=== PATIENT | male | born 1950 | race Caucasian/White ===

== ENCOUNTER 2017-01-08 08:38 | Inpatient (IN) | payer OTHER ==
--- NOTE | 2017-01-08 09:27 | EDPHY ---
H & P Smoking Status: Former smoker Time Seen by Provider: 01/08/17 09:02 HPI/ROS: CHIEF COMPLAINT: Weakness, confusion HISTORY OF PRESENT ILLNESS: 66-year-old male presents to the emergency department with his ex- by private vehicle feeling extremely weak over last 1 month. He has had a lack of appetite has not been eating well. Saw a primary care provider few weeks ago and had laboratory studies drawn. He was told that his sodium was low and he was told at salt to his diet. His daughter whom he lives with has become increasingly concerned that he is acting more confused. He has no pain in his chest. No difficulty breathing. No history of syncopal episodes. No abdominal pain. No melena. No headache. No reported trauma. The patient reports that he has lost over 25 lb in the last 1 month unintentionally. He thinks this is related to poor appetite. REVIEW OF SYSTEMS: Constitutional: No fever, no chills. Eyes: No double or blurry vision. ENT: No sore throat. Respiratory: No cough, no shortness of breath. Cardiac: No chest pain. Gastrointestinal: No abdominal pain, vomiting or diarrhea. Genitourinary: No dysuria. Musculoskeletal: No neck or back pain. Skin: No rashes. Neurological: No headache. (Emili Aldridge) Past Medical/Surgical History: Negative (Emili Aldridge) Social History: Divorce, lives with his daughter (Emili Aldridge) Physical Exam: General Appearance: Alert, no distress. Heart rate 108, initial blood pressure 90/54, 93% on room air. Eyes: Pupils equal and round. Extraocular motions are all intact. ENT: Mouth: Mucous membranes moist. Respiratory: No wheezing, rhonchi, or rales, lungs are clear to auscultation. Cardiovascular: Regular rate and rhythm. Gastrointestinal: Abdomen is soft and nontender, no masses, no rebound or guarding, bowel sounds normal. No CVA tenderness bilaterally. Rectal exam: Multiple nonthrombosed external hemorrhoids noted. No bleeding noted. Normal sphincter tone. Light brown-colored stool. Neurological: Alert and oriented x 3, cranial nerves II through XII grossly intact Skin: Warm and dry, no rashes. Musculoskeletal: Nontender to palpate along the cervical, thoracic or lumbar spine. Neck is supple. Extremities: Full range of motion and no peripheral edema. Psychiatric: Patient is oriented X 3, there is no agitation. (Emili Aldridge) Constitutional: Initial Vital Signs Temperature (C) 36.3 C 01/08/17 08:42 Heart Rate 108 H 01/08/17 08:42 Respiratory Rate 22 H 01/08/17 08:42 Blood Pressure 90/54 L 01/08/17 08:42 O2 Sat (%) 93 01/08/17 08:42 O2 Delivery Mode Room Air Allergies/Adverse Reactions: No Known Allergies Allergy (Unverified 01/08/17 08:41) Home Medications: Medication Instructions Recorded NK [No Known Home Meds] 01/08/17 Medical Decision Making - Diagnostics EKG Interpretation: EKG: Complete interpretation has been separately recorded in the [facility] archive. Summary impression: Sinus rhythm (Max Sena) Imaging: Imaging Impressions Head CT 01/08/17 09:51 Impression: No acute intracranial findings. If symptoms persist and clinical suspicion warrants, consider MRI. Findings discussed with Emili Aldridge PA-C, on 01/08/2017 at 1050 hours. ED Course/Re-evaluation: 66-year-old male presents to the emergency department by private vehicle feeling weak for the last 1 month. Upon reviewing the patient's medical record , the patient had a sodium of 122 on December 17, 2016. He was also anemic with hemoglobin of 12 and hematocrit of 35%. The patient had outpatient CT scan of his chest that was ordered by Toshia Almazan. These images were in Health images. Findings suggest abnormally enlarged mediastinal and left hilar lymphadenopathy. Possible lymphoma versus metastatic disease is considered. There are multiple low-density lesions noted in the spleen as well. He was also noted to have a small nonspecific right upper lobe pulmonary nodule. I informed the patient of the above findings. Laboratory studies including chemistries reveal sodium now of 120. Potassium is normal at 4. BUN of 10 and a creatinine of 0.5. Liver function tests reveal AST of 244, previously on December 17, 2016 this was 81 , ALT of 215, previously 80, conjugated bili 0.6. CT imaging of the brain both without with contrast has been ordered for his confusion. CT imaging of the brain without with contrast was reportedly normal. No intracranial bleeding or suspicious lesions. Patient will be admitted to the hospitalist. The patient has given permission to speak with his ex-, Evon at phone number [phone]. He has also given permission to talk with his daughter whom he lives with, [facility], . The patient was also seen examined by Dr. Sena, secondary supervising physician who spoke with the hospitalist for admission. (Emili Aldridge) Differential Diagnosis: Weakness including but not limited to electrolyte abnormality, depression, anxiety, CVA, spinal cord abnormality, and infectious causes. (Emili Aldridge) Other Provider: PHYSICIAN DOCUMENTATION: The patient was evaluated and managed by the Physician Double End Chucking Machine Operator. My co- signature indicates that I have reviewed this chart and I agree with the findings and plan of care as documented. I am the secondary supervising physician. (Max Sena) - Data Points Laboratory Results: Laboratory Results 01/08/17 09:05 01/08/17 09:05 01/08/17 01/08/17 01/08/17 09:05 09:05 09:05 WBC 5.00 10^3/uL 10^3/uL (3.80-9.50) RBC 4.19 10^6/uL L 10^6/uL (4.40-6.38) Hgb 11.1 g/dL L g/dL (13.7-17.5) Hct 32.4 % L % (40.0-51.0) MCV 77.3 fL L fL (81.5-99.8) MCH 26.5 pg L pg (27.9-34.1) MCHC 34.3 g/dL g/dL (32.4-36.7) RDW 16.7 % H % (11.5-15.2) Plt Count 307 10^3/uL 10^3/uL (150-400) MPV 7.6 fL L fL (8.7-11.7) Neut % (Auto) Not Reported Lymph % (Auto) Not Reported Carver % (Auto) Not Reported Eos % (Auto) Not Reported Baso % (Auto) Not Reported Nucleat RBC Rel Count 0.0 % % (0.0-0.2) Absolute Neuts (auto) Not Reported Absolute Lymphs (auto) Not Reported Absolute Monos (auto) Not Reported Absolute Eos (auto) Not Reported Absolute Basos (auto) Not Reported Absolute Nucleated RBC 0.00 10^3/uL 10^3/uL (0-0.01) Immature Gran % Not Reported Seg Neutrophils % 78 % % Band Neutrophils % 2 % % Lymphocytes % 8 % % Monocytes % 11 % % Eosinophils % 1 % % Immature Gran # Not Reported Absolute Seg Neuts 3.90 10^/uL 10^/uL (1.70-6.50) Absolute Band Neuts 0.10 10^3/uL 10^3/uL (0.00-0.70) Absolute Lymphocytes 0.40 10^3/uL L 10^3/uL (1.00-3.00) Absolute Monocytes 0.55 10^3/uL 10^3/uL (0.30-0.80) Absolute Eosinophils 0.05 10^3/uL 10^3/uL (0.03-0.40) Platelet Estimate ADEQUATE (ADEQ) Giant Platelets PRESENT H Microcytic Cells 1+ H Sodium 120 mEq/L L mEq/L (134-144) Potassium 4.0 mEq/L mEq/L (3.5-5.2) Chloride 85 mEq/L L mEq/L (97-110) Carbon Dioxide 26 mEq/l mEq/l (22-31) Anion Gap 9 mEq/L mEq/L (8-16) BUN 10 mg/dL mg/dL (7-23) Creatinine 0.5 mg/dL L mg/dL (0.7-1.3) Estimated GFR > 60 Glucose 104 mg/dL H mg/dL (70-100) Calcium 8.4 mg/dL L mg/dL (8.5-10.4) Total Bilirubin 1.0 mg/dL mg/dL (0.1-1.4) Conjugated Bilirubin 0.6 mg/dL H mg/dL (0.0-0.5) Unconjugated Bilirubin 0.4 mg/dL mg/dL (0.0-1.1) AST 244 IU/L H IU/L (17-59) ALT 215 IU/L H IU/L (21-72) Alkaline Phosphatase 1097 IU/L H IU/L (38-126) Total Protein 6.1 g/dL L g/dL (6.3-8.2) Albumin 2.8 g/dL L g/dL (3.5-5.0) Stool Occult Bld Scrn NEGATIVE (NEGATIVE) Departure - Departure Disposition: [facility] Inpatient Acute Clinical Impression: Chronic hyponatremia, Mediastinal adenopathy, Dehydration Failure to thrive Qualifiers: Failure to thrive age range: in adult Qualified Code(s): R62.7 - Adult failure to thrive Condition: Fair
[2017-01-08 09:31] LABS: ADD DIFF? YES; ADD MORPH? NO; ADD SCAN? NO; ATYPICAL LYMPHOCYTE FLAG 0 (0-99); FRAGMENT RBC FLAG 0 (0-99); HEMATOCRIT 32.4 % (40.0-51.0); HEMOGLOBIN 11.1 g/dL (13.7-17.5); LEFT SHIFT FLG 40 (0-99); LIPEMIA HEMOLYSIS FLAG 90 (0-99); MEAN CELL HEMOGLOBIN 26.5 pg (27.9-34.1); MEAN CELL HEMOGLOBIN CONCENTR. 34.3 g/dL (32.4-36.7); MEAN CELL VOLUME 77.3 fL (81.5-99.8); MEAN PLATELET VOLUME 7.6 fL (8.7-11.7); PLATELET CLUMPS FLAG 0 (0-99); PLATELET COUNT 307 10^3/uL (150-400); RED BLOOD CELL COUNT 4.19 10^6/uL (4.40-6.38); RED CELL DISTRIBUTION WIDTH 16.7 % (11.5-15.2)
--- NOTE | 2017-01-08 09:32 | CPEKG ---
Heart Rate: 84 RR Interval: 714 P-R Interval: 168 QRSD Interval: 82 QT Interval: 348 QTC Interval: 412 P [place]: 70 QRS [place]: -19 T Wave [place]: 73 EKG Severity - BORDERLINE ECG - EKG Impression: SINUS RHYTHM Electronically Signed By: Max Sena 08-Jan-2017 11:53:01
[2017-01-08 09:41] LABS: ALANINE AMINOTRANSFERASE 215 IU/L (21-72); ALBUMIN 2.8 g/dL (3.5-5.0); ALKALINE PHOSPHATASE 1097 IU/L (38-126); ANION GAP 9 mEq/L (8-16); ASPARTATE AMINOTRANSFERASE 244 IU/L (17-59); BILIRUBIN-CONJUGATED 0.6 mg/dL (0.0-0.5); BILIRUBIN-UNCONJUGATED 0.4 mg/dL (0.0-1.1); CALCIUM 8.4 mg/dL (8.5-10.4); CARBON DIOXIDE 26 mEq/l (22-31); CHLORIDE 85 mEq/L (97-110); CREATININE 0.5 mg/dL (0.7-1.3); GLOMERULAR FILTRATION RATE > 60; GLUCOSE 104 mg/dL (70-100); SODIUM 120 mEq/L (134-144); TOTAL PROTEIN 6.1 g/dL (6.3-8.2)
[2017-01-08] MEDS ORDERED: IOPAMIDOL (ISOVUE-300) 100 ML BTL IV ONE (09:59)
[2017-01-08 10:05] LABS: GIANT PLATELETS PRESENT; MICROCYTES 1+; PLATELET ESTIMATE ADEQUATE (ADEQ)
[2017-01-08] MEDS ORDERED: ONDANSETRON DISINTEGRATING 4 MG TAB PO PRN (15:21)
[2017-01-08] MEDS ORDERED: NS 1,000 ML IV SCH (15:30)
--- NOTE | 2017-01-08 15:45 | GHP ---
[f rep st] HISTORY AND PHYSICAL DATE OF ADMISSION: 01/08/2017 CHIEF COMPLAINT: Weakness. HISTORY OF PRESENT ILLNESS: This is a 66-year-old male with no significant past medical history. Chandu king says that about 5 weeks ago he started developing weakness and poor appetite. This has progressed into some confusion, although he does answer questions pretty appropriately. He has lost 25 pounds . Other than that, he does not really have any focalizing symptoms. He denies any lymphadenopathy. He has no history of night sweats. No melena. No bowel changes. No urinary symptoms. No cough, shortness of breath, chest pain, or abdominal pain. Labs done about a month ago show hyponatremia and elevated liver function tests. Supposedly he did have a CAT scan of his chest which showed lymp hadenopathy, but I do not know where that was or what was done about it. REVIEW OF SYSTEMS: A 10-point review of systems was obtained and negative. PAST MEDICAL HISTORY: None. MEDICATIONS: None. SOCIAL HISTORY: Was a smoker but quit 9 months ago. No alcohol. 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 FAMILY HISTORY: Mother had a very aggressive cancer and father also had cancer. PHYSICAL EXAMINATION: VITAL SIGNS: Afebrile. Blood pressure is 119/67, heart rate 75, oxygen satu ration 96% on room air. GENERAL: Patient is cachectic but in no apparent distress HEENT: Nonicte alfredo sclerae. Extraocular movements intact. Moist mucous membranes. NECK: Supple. No thyromegaly . LUNGS: Good effort. Clear to auscultation bilaterally. CARDIOVASCULAR: Regular rate and rhyth m. A 2/6 systolic murmur. ABDOMEN: Soft, nontender, nondistended. LYMPHATICS: No cervical, axil kori, or femoral lymphadenopathy. NEUROLOGIC: Alert and oriented x3. Moving all 4 extremities equ ally. PSYCH: Normal affect. LABORATORY DATA: Sodium 120, creatinine is 0.5. AST and ALT in the 200s, alk phos of 1000. Has mi ld microcytic anemia. Guaiac negative. CT scan of the head does not show any abnormalities. ASSESSMENT/PLAN: 1. This is a 66-year-old male presenting with severe hyponatremia, cachexia, elevated liver functio n tests, and probable malignancy. PLAN: We will repeat CAT scanning today including chest, abdomen , and pelvis. We will check a PSA and a CEA. Further evaluation after the results of the this init ial testing. 2. Hyponatremia, probably element of syndrome of inappropriate anti-diuretic hormone. I think ther e is also an element of volume depletion, and so will give a little bit of IV fluids at 50 cc an jennifer r and monitor sodiums to make sure they are not correcting to quickly. Will also check a urine sodi um. 3. Microcytic anemia. Will check iron studies. 4. Elevated liver function tests, probably related to metastatic malignancy. CT scan of the abdome n and pelvis will be done. 5. Code status: Patient is full code. /[id number]/MODL
[2017-01-08 17:17] LABS: % SATURATION 16 % (20-55); TOTAL IRON BINDING CAPACITY 206 ug/dL (260-490)
[2017-01-08 19:26] LABS: COLOR YELLOW; LEUKOCYTE ESTERASE,URINE NEGATIVE (NEGATIVE); NITRITE,URINE NEGATIVE (NEGATIVE)
[2017-01-09 04:57] LABS: ADD DIFF? YES; ADD MORPH? NO; ADD SCAN? NO; ATYPICAL LYMPHOCYTE FLAG 90 (0-99); FRAGMENT RBC FLAG 0 (0-99); HEMATOCRIT 29.1 % (40.0-51.0); HEMOGLOBIN 10.1 g/dL (13.7-17.5); LEFT SHIFT FLG 30 (0-99); LIPEMIA HEMOLYSIS FLAG 90 (0-99); MEAN CELL HEMOGLOBIN 26.9 pg (27.9-34.1); MEAN CELL HEMOGLOBIN CONCENTR. 34.7 g/dL (32.4-36.7); MEAN CELL VOLUME 77.6 fL (81.5-99.8); MEAN PLATELET VOLUME 7.6 fL (8.7-11.7); PLATELET CLUMPS FLAG 0 (0-99); PLATELET COUNT 273 10^3/uL (150-400); RED BLOOD CELL COUNT 3.75 10^6/uL (4.40-6.38); RED CELL DISTRIBUTION WIDTH 16.4 % (11.5-15.2)
[2017-01-09 05:06] LABS: INR 1.16 (0.83-1.16); PROTIME(PATIENT) 14.8 SEC (12.0-15.0)
[2017-01-09 05:17] LABS: ANION GAP 9 mEq/L (8-16); CALCIUM 7.8 mg/dL (8.5-10.4); CARBON DIOXIDE 23 mEq/l (22-31); CHLORIDE 86 mEq/L (97-110); CREATININE 0.5 mg/dL (0.7-1.3); GLOMERULAR FILTRATION RATE > 60; GLUCOSE 92 mg/dL (70-100); POTASSIUM 4.2 mEq/L (3.5-5.2)
[2017-01-09 05:20] LABS: SODIUM 118 mEq/L (134-144)
[2017-01-09 05:41] LABS: PLATELET ESTIMATE ADEQUATE (ADEQ)
[2017-01-09] MEDS ORDERED: ENOXAPARIN 30 MG/0.3 ML SYR SC SCH (09:00)
[2017-01-09] MEDS: ENOXAPARIN 40 MG/0.4 ML SYR SC SCH (11:36)
--- NOTE | 2017-01-09 13:03 | HOSPPROG ---
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- suspect the 120 is close to his recent baseline oxygen saturations 90% on RA - stop IVF - encourage PO - will monitor sodium this pm with fluid restriction # Severe protein calorie malnutrition - suspect from a potential underlying malignancy CT chest/abd (personally reviewed and interpretation) bulky bilateral LAD with no obvious primary tumor - dietary consultation - nourishments # Bulky LAD - oncology to see today and assist with diagnostic approach CEA wnl - PSA pending # Microcytic anemia - suspect related to above - ferritin >5000 - no transfusion indicated # elevated LFT - CT imaging without cirrhosis or obvious liver abnormality - may be related to underlying process - pt with relatively recent tattoo - send hep serologies # proph - lovenox # diet - regular # dispo - > 2MN as requires additional diagnostic evaluation and close monitoring of sodium I have discussed the case with Oncology - highly suspicious for SIADH - will dc IVF and follow Subjective: feels better today - took a good meal overnight Objective: Vital Signs Temp Pulse Resp BP Pulse Ox 36.3 C 89 16 128/73 H 92 01/09/17 08:20 01/09/17 08:20 01/09/17 08:20 01/09/17 08:20 01/09/17 08:20 Laboratory Results 01/09/17 04:31 01/09/17 04:31 01/08/17 01/09/17 01/10/17 05:59 05:59 05:59 Intake Total 1240 Output Total 1150 320 Balance 90 -320 PT 14.8 SEC (12.0-15.0) 01/09/17 04:31 INR 1.16 (0.83-1.16) 01/09/17 04:31 - Physical Exam Constitutional: chronically ill appearing, cachectic Eyes: anicteric sclera Ears, Nose, Mouth, Throat: dry mucous membranes Cardiovascular: regular rate and rhythym Respiratory: no respiratory distress, no rales or rhonchi Gastrointestinal: normoactive bowel sounds, soft, non-tender abdomen Genitourinary: no bladder fullness Skin: warm, normal color Musculoskeletal: No asymmetric calves Neurologic: AAOx3 Psychiatric: interacting appropriately, not anxious Lymph, Heme, Immunologic: lymphadenopathy ICD10 Worksheet Patient Problems: Problems Problem Status Onset Chronic hyponatremia Acute Dehydration Acute Failure to thrive Acute Mediastinal adenopathy Acute
[2017-01-09 17:25] LABS: ANION GAP 9 mEq/L (8-16); CARBON DIOXIDE 23 mEq/l (22-31); CHLORIDE 85 mEq/L (97-110); CREATININE 0.6 mg/dL (0.7-1.3); GLOMERULAR FILTRATION RATE > 60; GLUCOSE 107 mg/dL (70-100); POTASSIUM 4.1 mEq/L (3.5-5.2)
[2017-01-09 17:36] LABS: SODIUM 117 mEq/L (134-144)
[2017-01-10 05:04] LABS: HEMATOCRIT 29.9 % (40.0-51.0); HEMOGLOBIN 10.3 g/dL (13.7-17.5); MEAN CELL HEMOGLOBIN 26.8 pg (27.9-34.1); MEAN CELL HEMOGLOBIN CONCENTR. 34.4 g/dL (32.4-36.7); MEAN CELL VOLUME 77.7 fL (81.5-99.8); RED BLOOD CELL COUNT 3.85 10^6/uL (4.40-6.38); RED CELL DISTRIBUTION WIDTH 16.5 % (11.5-15.2)
[2017-01-10 05:22] LABS: ANION GAP 7 mEq/L (8-16); CARBON DIOXIDE 24 mEq/l (22-31); CHLORIDE 87 mEq/L (97-110); CREATININE 0.5 mg/dL (0.7-1.3); GLOMERULAR FILTRATION RATE > 60; GLUCOSE 97 mg/dL (70-100); POTASSIUM 4.2 mEq/L (3.5-5.2)
[2017-01-10 05:25] LABS: SODIUM 118 mEq/L (134-144)
[2017-01-10] MEDS: ENOXAPARIN 40 MG/0.4 ML SYR SC SCH (08:44)
--- NOTE | 2017-01-10 11:02 | HOSPPROG ---
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- suspect the 120 is close to his recent baseline oxygen saturations 90% on RA - stop IVF - encourage PO- to increase solutes - continue fluid restriction - will monitor sodium daily # Severe protein calorie malnutrition - suspect from a potential underlying malignancy CT chest/abd - bulky bilateral LAD with no obvious primary tumor - dietary consultation - nourishments # Acute encephalopathy at admit CT head (personally reviewed and interpreted) without acute findings symptoms resolved since admit - cont to monitor # Bulky LAD - oncology to see today and assist with diagnostic approach CEA wnl - PSA pending # Microcytic anemia - suspect related to above - ferritin >5000 - no transfusion indicated # Elevated LFT - CT imaging without cirrhosis or obvious liver abnormality - may be related to underlying process - pt with relatively recent tattoo - send hep serologies # proph - lovenox # diet - regular # dispo - > 2MN as requires additional diagnostic evaluation and close monitoring of sodium I have discussed the case with Oncology - highly suspicious for SIADH - makes small cell CA possibility Subjective: slept well - appetite improved Objective: Vital Signs Temp Pulse Resp BP Pulse Ox 36.9 C 84 16 118/67 93 01/10/17 08:40 01/10/17 08:40 01/10/17 08:40 01/10/17 08:40 01/10/17 08:40 Laboratory Results 01/10/17 04:44 01/10/17 04:44 01/09/17 01/10/17 01/11/17 05:59 05:59 05:59 Intake Total 1240 1200 Output Total 1150 2480 Balance 90 -1280 PT 14.8 SEC (12.0-15.0) 01/09/17 04:31 INR 1.16 (0.83-1.16) 01/09/17 04:31 - Physical Exam Constitutional: cachectic Eyes: anicteric sclera Ears, Nose, Mouth, Throat: moist mucous membranes Cardiovascular: regular rate and rhythym Respiratory: no respiratory distress, no rales or rhonchi Gastrointestinal: normoactive bowel sounds, soft, non-tender abdomen Genitourinary: no bladder fullness Skin: warm Musculoskeletal: No asymmetric calves Neurologic: AAOx3 Psychiatric: interacting appropriately, not anxious Lymph, Heme, Immunologic: lymphadenopathy ICD10 Worksheet Patient Problems: Problems Problem Status Onset Chronic hyponatremia Acute Dehydration Acute Failure to thrive Acute Mediastinal adenopathy Acute
--- NOTE | 2017-01-10 13:13 | GCON ---
[f rep st] CONSULTATION MEDICAL ONCOLOGY CONSULTATION REASON FOR CONSULTATION: A 66-year-old male with tobacco history, hyponatremia with sodium of 118, and mediastinal adenopathy including a left hilar mass with lymphadenopathy suggestive of a primary lung malignancy. HISTORY OF PRESENT ILLNESS: The patient is a 66-year-old white male who has an approximately 40 pac k-year history of tobacco use. He quit tobacco use 9 months ago. He reports approximately 5-6 week s of anorexia and 25-pound weight loss. He reports no nausea, vomiting, interruption in bowel funct ion, headache, or significant respiratory symptoms, night sweats, fevers, peripheral lymphadenopathy or pain at any location. 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 Family history notable for other members with a history of malignancy. He was admitted via the emergency department. CT scanning in the ER does show significant mediastinal lymphadenopathy and left hilar mass and left hilar lymphadenopathy suggestive of a primary malignancy. He has no significant findings below the diaphragm. ALLERGIES: None known. MEDICATIONS: None. PRIOR SURGICAL HISTORY: ORIF for right leg tibia/fibula fracture in 1991. PRIOR MEDICAL HISTORY: No acute or chronic medical condition. REVIEW OF SYSTEMS: Notable as above. SOCIAL HISTORY: The patient lives with his daughter. He is . His ex- is present durin g his interview today. No alcohol intake. Tobacco history as above. No known occupational exposur es. PHYSICAL EXAMINATION: GENERAL: This is a thin, middle-aged white male with a bulky diaz, who look s older than his chronologic age. He is alert, cooperative, and in no acute distress. HEENT: Exam shows no facial asymmetry. Sclerae anicteric. Oral mucosa intact. LYMPH NODES: No adenopathy in the neck. No axillary adenopathy. PULMONARY: Lung sullivan show slightly prolonged expiratory phas e. Otherwise, lung sullivan clear. CARDIAC: RSR. ABDOMEN: Soft, thin, flat, without mass, tendern ess or HSM. EXTREMITIES: No peripheral edema. NEUROLOGIC: Reflexes are intact. SKIN: Unremarka ble. LABORATORY DATA: Sodium 118, potassium 4.2, chloride 87, CO2 of 24, glucose 97, BUN 8, creatinine 0 .5. Pro time 14.8. Calcium 7.8, alkaline phosphatase above 1000, AST 244, ALT 215. CT scan of [address], abdomen, and pelvis is summarized above. IMPRESSION: Mediastinal adenopathy, including left hilar mass, left hilar lymphadenopathy in the se tting of hyponatremia in a euvolemic state with 25-pound weight loss and 40 pack-year history of tob acco use. COMMENTS: This situation is highly suggestive of a small cell carcinoma lung primary, given his cli nical presentation and history. Of course, other possibilities exist, including the possibility of a lymphoid malignancy. I have reviewed the situation today with the patient and his ex-, Evon. I do recommend CT-guided mediastinal lymph node biopsy as is feasible depending upon anatomic considerations. He should be provided optimal hospital management for his SIADH to include limit fluid restriction to 1200 mL or less per day. Include salt in his dietary intake, and careful monitoring of serial sodium assays un til correction or until a safe pattern in hyponatremia emerges. If not yet done, I suggest an MRI o f the brain. Our service will follow pending his workup. In our medical group, Dr. Olga Lidia Rain is scheduled for inpatient followup as of tomorrow, Wednesday, A pril 2016. I will inform Dr. Rain to continue serial followup of this gentleman in the [facility]. Thank you for allowing our service to see this patient and participate in his evaluation and managem ent. /[id number]/MODL
[2017-01-10 15:36] LABS: ANION GAP 7 mEq/L (8-16); CALCIUM 7.9 mg/dL (8.5-10.4); CARBON DIOXIDE 26 mEq/l (22-31); CHLORIDE 85 mEq/L (97-110); CREATININE 0.6 mg/dL (0.7-1.3); GLOMERULAR FILTRATION RATE > 60; GLUCOSE 152 mg/dL (70-100); POTASSIUM 4.2 mEq/L (3.5-5.2)
[2017-01-10 15:39] LABS: SODIUM 118 mEq/L (134-144)
[2017-01-11 06:14] LABS: ANION GAP 6 mEq/L (8-16); CALCIUM 8.2 mg/dL (8.5-10.4); CARBON DIOXIDE 24 mEq/l (22-31); CHLORIDE 89 mEq/L (97-110); CREATININE 0.5 mg/dL (0.7-1.3); GLOMERULAR FILTRATION RATE > 60; GLUCOSE 102 mg/dL (70-100); POTASSIUM 4.3 mEq/L (3.5-5.2)
[2017-01-11 06:16] LABS: SODIUM 119 mEq/L (134-144)
[2017-01-11 08:20] LABS: FREE PSA <0.1 ng/mL; PSA RATIO F/T See Comments ratio; TOTAL PSA 0.47 ng/mL (<=4.5)
[2017-01-11] MEDS: ENOXAPARIN 40 MG/0.4 ML SYR SC SCH (09:06)
[2017-01-11] MEDS ORDERED: GADOBUTROL 10 ML VIAL IVP ONE (11:53)
[2017-01-11] MEDS: SODIUM CHLORIDE 1,000 MG TAB PO SCH ×2 (13:25→18:28)
--- NOTE | 2017-01-11 14:45 | SOAPPROG ---
SOAP Progress Note Assessment/Plan: E&M mediastinal mass * Mediastinal and other lymphadenopathy: with SIADH, I am concern about malignancy. Reviewed CT with radiology and right low neck mass looks promising to get tissue. * SIADH: stable on fluid restrictions * Severe protein calorie malnutrition - suspect from a potential underlying malignancy Subjective: Doing about the same without new complaints. Objective: Vital Signs Temp Pulse Resp BP Pulse Ox 37.1 C 86 16 114/71 90 L 01/11/17 08:04 01/11/17 08:04 01/11/17 08:04 01/11/17 08:04 01/11/17 08:04 Laboratory Results 01/10/17 04:44 01/11/17 04:46 01/10/17 01/11/17 01/12/17 05:59 05:59 05:59 Intake Total 1200 300 Output Total 2480 430 75 Balance -1280 -130 -75 PT 14.8 SEC (12.0-15.0) 01/09/17 04:31 INR 1.16 (0.83-1.16) 01/09/17 04:31 Physical Exam - Physical Exam General Appearance: no apparent distress Respiratory: lungs clear Cardiac/Chest: regular rate, rhythm Abdomen: non-tender, soft Lymphatic: no adenopathy ICD10 Worksheet Patient Problems: Problems Problem Status Onset Chronic hyponatremia Acute Dehydration Acute Failure to thrive Acute Mediastinal adenopathy Acute
--- NOTE | 2017-01-11 16:00 | HOSPPROG ---
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 SIADH- suspect the 120 is close to his recent baseline oxygen saturations 94% on RA - no IVF - encourage PO - continue fluid restriction - adding salt tabs as solute intake has been marginal - will monitor sodium daily # Severe protein calorie malnutrition - suspect from a potential underlying malignancy CT chest/abd - bulky bilateral LAD with no obvious primary tumor - dietary consultation - nourishments # Acute encephalopathy at admit CT head - without acute findings symptoms resolved since admit - cont to monitor # Bulky LAD - oncology suspecting small cell CA - MRI brain (personally reviewed and interpreted) no mets CEA and PSA wnl - planning US guided LAD biopsy # Microcytic anemia - suspect related to above - ferritin >5000 - no transfusion indicated # Elevated LFT - CT imaging without cirrhosis or obvious liver abnormality - may be related to underlying process - pt with relatively recent tattoo hep serologies negative # proph - lovenox # diet - regular # dispo - > 2MN as requires additional diagnostic evaluation and close monitoring of sodium I have discussed the case with Oncology - plan for US guided biopsy of cervical LAD for tissue Subjective: enjoying walking Objective: Vital Signs Temp Pulse Resp BP Pulse Ox 37.1 C 86 16 114/71 94 01/11/17 08:04 01/11/17 08:04 01/11/17 08:04 01/11/17 08:04 01/11/17 09:45 Laboratory Results 01/10/17 04:44 01/11/17 04:46 01/10/17 01/11/17 01/12/17 05:59 05:59 05:59 Intake Total 1200 300 Output Total 2480 430 75 Balance -1280 -130 -75 PT 14.8 SEC (12.0-15.0) 01/09/17 04:31 INR 1.16 (0.83-1.16) 01/09/17 04:31 - Physical Exam Constitutional: chronically ill appearing, cachectic Eyes: anicteric sclera Ears, Nose, Mouth, Throat: dry mucous membranes Cardiovascular: regular rate and rhythym Respiratory: no respiratory distress, no rales or rhonchi Gastrointestinal: normoactive bowel sounds, soft, non-tender abdomen Genitourinary: no bladder fullness Skin: warm, normal color Musculoskeletal: No asymmetric calves Neurologic: AAOx3 Psychiatric: interacting appropriately, not anxious Lymph, Heme, Immunologic: no cervical LAD ICD10 Worksheet Patient Problems: Problems Problem Status Onset Chronic hyponatremia Acute Dehydration Acute Failure to thrive Acute Mediastinal adenopathy Acute
[2017-01-12 05:17] LABS: ANION GAP 9 mEq/L (8-16); CALCIUM 8.1 mg/dL (8.5-10.4); CARBON DIOXIDE 23 mEq/l (22-31); CHLORIDE 88 mEq/L (97-110); CREATININE 0.5 mg/dL (0.7-1.3); GLOMERULAR FILTRATION RATE > 60; GLUCOSE 103 mg/dL (70-100); POTASSIUM 4.4 mEq/L (3.5-5.2); SODIUM 120 mEq/L (134-144)
[2017-01-12] MEDS: SODIUM CHLORIDE 1,000 MG TAB PO SCH ×3 (08:48→17:54)
[2017-01-12] MEDS ORDERED: fentaNYL 100 MCG/2 ML INJ ONE (10:05)
[2017-01-12] MEDS ORDERED: MIDAZOLAM 2 MG/2 ML VIAL ONE (10:05)
[2017-01-12] MEDS ORDERED: NS 1,000 ML IV SCH (10:30)
--- NOTE | 2017-01-12 16:00 | HOSPPROG ---
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- suspect the 120 is close to his recent baseline oxygen saturations 90% on RA - no IVF - encourage PO - continue fluid restriction - cont salt tabs - as solute intake has been marginal - will monitor sodium daily # Severe protein calorie malnutrition - suspect from a potential underlying malignancy CT chest/abd - bulky bilateral LAD with no obvious primary tumor - dietary consultation - nourishments # Acute encephalopathy at admit CT head - without acute findings symptoms resolved since admit - cont to monitor # Microcytic anemia - suspect related to above - ferritin >5000 - no transfusion indicated # Elevated LFT - CT imaging without cirrhosis or obvious liver abnormality - may be related to underlying process - pt with relatively recent tattoo hep serologies negative # proph - lovenox # diet - regular # dispo - > 2MN as requires additional diagnostic evaluation and close monitoring of sodium I have discussed the case with Oncology - plan for CT guided biopsy today by IR then can develop plan from path Subjective: no pain post biopsy Objective: Vital Signs Temp Pulse Resp BP Pulse Ox 36.4 C 79 16 117/66 90 L 01/12/17 13:19 01/12/17 13:19 01/12/17 13:19 01/12/17 13:19 01/12/17 13:19 Laboratory Results 01/10/17 04:44 01/12/17 04:38 01/11/17 01/12/17 01/13/17 05:59 05:59 05:59 Intake Total 300 900 Output Total 430 450 125 Balance -130 450 -125 PT 14.8 SEC (12.0-15.0) 01/09/17 04:31 INR 1.16 (0.83-1.16) 01/09/17 04:31 - Physical Exam Constitutional: chronically ill appearing, cachectic Eyes: anicteric sclera Ears, Nose, Mouth, Throat: dry mucous membranes Cardiovascular: regular rate and rhythym Respiratory: no respiratory distress, no rales or rhonchi Gastrointestinal: normoactive bowel sounds, soft, non-tender abdomen Genitourinary: no bladder fullness Skin: warm, normal color Musculoskeletal: No asymmetric calves Neurologic: AAOx3 Psychiatric: interacting appropriately Lymph, Heme, Immunologic: no cervical LAD ICD10 Worksheet Patient Problems: Problems Problem Status Onset Chronic hyponatremia Acute Dehydration Acute Failure to thrive Acute Mediastinal adenopathy Acute
[2017-01-13 06:00] LABS: ANION GAP 7 mEq/L (8-16); CALCIUM 8.1 mg/dL (8.5-10.4); CARBON DIOXIDE 26 mEq/l (22-31); CHLORIDE 90 mEq/L (97-110); CREATININE 0.5 mg/dL (0.7-1.3); GLOMERULAR FILTRATION RATE > 60; GLUCOSE 104 mg/dL (70-100); POTASSIUM 4.5 mEq/L (3.5-5.2); SODIUM 123 mEq/L (134-144)
[2017-01-13] MEDS: SODIUM CHLORIDE 1,000 MG TAB PO SCH ×3 (08:55→17:34)
[2017-01-13] MEDS: ENOXAPARIN 40 MG/0.4 ML SYR SC SCH (10:08)
--- NOTE | 2017-01-13 10:31 | HOSPPROG ---
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- suspect the 120 is close to his recent baseline - no IVF - encourage PO - continue fluid restriction - cont salt tabs - as solute intake has been marginal - will monitor sodium daily # Severe protein calorie malnutrition - suspect from a potential underlying malignancy CT chest/abd - bulky bilateral LAD with no obvious primary tumor - dietary consultation - nourishments # Acute encephalopathy at admit CT head - without acute findings symptoms resolved since admit - cont to monitor # Microcytic anemia - suspect related to above - ferritin >5000 - no transfusion indicated # Elevated LFT - CT imaging without cirrhosis or obvious liver abnormality - may be related to underlying process - pt with relatively recent tattoo hep serologies negative # proph - lovenox # diet - regular # dispo - > 2MN as requires additional diagnostic evaluation and close monitoring of sodium I have discussed the case with Pharm D - will keep current salt tab dosing as PO remains modest at best Subjective: denies CP or SOB Objective: Vital Signs Temp Pulse Resp BP Pulse Ox 36.7 C 81 16 112/68 94 01/13/17 08:08 01/13/17 08:08 01/13/17 08:08 01/13/17 08:08 01/13/17 08:08 Laboratory Results 01/10/17 04:44 01/13/17 05:19 01/12/17 01/13/17 01/14/17 05:59 05:59 05:59 Intake Total 900 1160 450 Output Total 450 1525 125 Balance 450 -365 325 PT 14.8 SEC (12.0-15.0) 01/09/17 04:31 INR 1.16 (0.83-1.16) 01/09/17 04:31 - Physical Exam Constitutional: chronically ill appearing, cachectic Eyes: anicteric sclera Ears, Nose, Mouth, Throat: dry mucous membranes Cardiovascular: regular rate and rhythym Respiratory: no respiratory distress, no rales or rhonchi Gastrointestinal: normoactive bowel sounds, soft, non-tender abdomen Genitourinary: no bladder fullness Skin: warm, normal color Musculoskeletal: No asymmetric calves Neurologic: AAOx3 Psychiatric: interacting appropriately, not anxious Lymph, Heme, Immunologic: lymphadenopathy ICD10 Worksheet Patient Problems: Problems Problem Status Onset Chronic hyponatremia Acute Dehydration Acute Failure to thrive Acute Mediastinal adenopathy Acute
--- NOTE | 2017-01-13 16:23 | SOAPPROG ---
SOAP Progress Note Assessment/Plan: E&M mediastinal mass * Mediastinal and other lymphadenopathy: Reviewed biopsy with pathology and it is definitely a lymphoma but they are still working on specific subtype. It expresses both CD30 and CD20. I will get a staging bone marrow today and see if we can get a PET inpatient. I don't think he is going to get much better without starting chemotherapy. 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 Subjective: Doing about the same without new complaints. Very tired. Objective: Vital Signs Temp Pulse Resp BP Pulse Ox 36.7 C 91 16 130/75 H 93 01/13/17 08:08 01/13/17 16:07 01/13/17 08:08 01/13/17 16:07 01/13/17 16:07 Laboratory Results 01/10/17 04:44 01/13/17 05:19 01/12/17 01/13/17 01/14/17 05:59 05:59 05:59 Intake Total 900 1160 450 Output Total 450 1525 125 Balance 450 -365 325 PT 14.8 SEC (12.0-15.0) 01/09/17 04:31 INR 1.16 (0.83-1.16) 01/09/17 04:31 - Time Spent With Patient Time Spent With Patient: >35min Physical Exam - Physical Exam General Appearance: no apparent distress EENT: pharynx normal Respiratory: lungs clear Cardiac/Chest: regular rate, rhythm ICD10 Worksheet Patient Problems: Problems Problem Status Onset Chronic hyponatremia Acute Mediastinal adenopathy Acute Dehydration Acute Failure to thrive Acute
--- NOTE | 2017-01-13 17:07 | GPN ---
[f rep st] PROCEDURE NOTE PROCEDURE: Bone marrow aspirate and biopsy. REASON FOR PROCEDURE: Staging studies for new diagnosis of lymphoma. Risks and benefits of the pro cedure were explained to the patient and written consent was obtained. DESCRIPTION OF PROCEDURE: The patient was laid on his stomach. The left hip was prepped and draped in usual sterile fashion. 5 mL of 1% lidocaine was infused into the region. Bone marrow was enter ed and aspirate was obtained for studies. Bone was re-entered and about 1 cm core biopsy was obtain ed without incident. The patient tolerated the procedure well and a dressing was applied. Instruct ions given to Nursing for care. /[id number]/MODL
[2017-01-13 17:38] LABS: ADD DIFF? YES; ADD MORPH? NO; ADD SCAN? NO; ATYPICAL LYMPHOCYTE FLAG 80 (0-99); FRAGMENT RBC FLAG 20 (0-99); HEMATOCRIT 32.2 % (40.0-51.0); HEMOGLOBIN 10.6 g/dL (13.7-17.5); LEFT SHIFT FLG 30 (0-99); LIPEMIA HEMOLYSIS FLAG 80 (0-99); MEAN CELL HEMOGLOBIN 26.6 pg (27.9-34.1); MEAN CELL HEMOGLOBIN CONCENTR. 32.9 g/dL (32.4-36.7); MEAN CELL VOLUME 80.9 fL (81.5-99.8); MEAN PLATELET VOLUME 7.9 fL (8.7-11.7); PLATELET CLUMPS FLAG 0 (0-99); PLATELET COUNT 283 10^3/uL (150-400); RED BLOOD CELL COUNT 3.98 10^6/uL (4.40-6.38); RED CELL DISTRIBUTION WIDTH 16.8 % (11.5-15.2)
[2017-01-13 18:07] LABS: PROTIME(PATIENT) 14.1 SEC (12.0-15.0)
[2017-01-13 18:08] LABS: APTT 44.7 SEC (23.0-38.0)
[2017-01-13 18:19] LABS: FIBRINOGEN 938 mg/dL (214-456)
[2017-01-13 18:45] LABS: ALANINE AMINOTRANSFERASE 275 IU/L (21-72); ALBUMIN 2.5 g/dL (3.5-5.0); ALKALINE PHOSPHATASE 1297 IU/L (38-126); ANION GAP 8 mEq/L (8-16); ASPARTATE AMINOTRANSFERASE 477 IU/L (17-59); BILIRUBIN,TOTAL 0.9 mg/dL (0.1-1.4); CALCIUM 8.2 mg/dL (8.5-10.4); CARBON DIOXIDE 26 mEq/l (22-31); CHLORIDE 88 mEq/L (97-110); CREATININE 0.6 mg/dL (0.7-1.3); GLOMERULAR FILTRATION RATE > 60; GLUCOSE 126 mg/dL (70-100); LACTATE DEHYDROGENASE 1460 IU/L (313-618); SODIUM 122 mEq/L (134-144); TOTAL PROTEIN 5.6 g/dL (6.3-8.2); TRIGLYCERIDE 189 mg/dL (40-150); URIC ACID 1.6 mg/dL (3.5-8.5)
[2017-01-13 19:07] LABS: HYPOCHROMIA 1+; MICROCYTES 1+; PLATELET ESTIMATE ADEQUATE (ADEQ); POLYCHROMASIA 1+
[2017-01-13 19:09] LABS: PLATELET COUNT 283 10^3/uL (150-400)
[2017-01-14 05:33] LABS: ANION GAP 8 mEq/L (8-16); CARBON DIOXIDE 25 mEq/l (22-31); CHLORIDE 90 mEq/L (97-110); CREATININE 0.5 mg/dL (0.7-1.3); GLOMERULAR FILTRATION RATE > 60; GLUCOSE 93 mg/dL (70-100); POTASSIUM 4.4 mEq/L (3.5-5.2); SODIUM 123 mEq/L (134-144)
[2017-01-14] MEDS: SODIUM CHLORIDE 1,000 MG TAB PO SCH ×4 (08:27→19:44)
[2017-01-14] MEDS: ENOXAPARIN 40 MG/0.4 ML SYR SC SCH (08:28)
--- NOTE | 2017-01-14 14:02 | HOSPPROG ---
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 -ACUTE ENCEPHALOPATHY IMPROVING -SEVERE PROTEIN CALORIE MALNUTRITION AND WEIGHT LOSS -HYPONATREMIA FROM SIADH -ANEMIA OF MALIGNANCY PLANS: -await final lymphoma evaluation results -continue water restriction and sodium supplements -he should probably have an hiv test done as well -I will increase his salt supplement at this time SUBJECTIVE: The patient denies any pain or discomfort, nausea, dyspnea, fever symptoms OBJECTIVE Vitals reviewed: Stable without fever Exam: alert oriented skin warm dry color ok resps not labored lungs clear BSs heart regular abd soft nondistended nontender, bowel sounds present limbs warm, no edema iv site ok Laboratory data: Sodium approximately stable at 123 other chemistries stable Objective: Vital Signs Temp Pulse Resp BP Pulse Ox 36.8 C 87 16 115/67 93 01/14/17 08:30 01/14/17 08:30 01/14/17 08:30 01/14/17 08:30 01/14/17 08:30 Laboratory Results 01/13/17 17:05 01/14/17 04:49 01/13/17 01/14/17 01/15/17 06:59 06:59 06:59 Intake Total 1160 850 Output Total 1525 750 110 Balance -365 100 -110 PT 14.1 SEC (12.0-15.0) 01/13/17 17:05 INR 1.10 (0.83-1.16) 01/13/17 17:05 ICD10 Worksheet Patient Problems: Problems Problem Status Onset Chronic hyponatremia Acute Dehydration Acute Failure to thrive Acute Mediastinal adenopathy Acute
[2017-01-14] MEDS ORDERED: ALTEPLASE 2 MG VIAL IVP PRN (14:53)
--- NOTE | 2017-01-14 15:05 | SOAPPROG ---
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 Some elements of juares-zone between it and Hodgkin's. Tissue to be sent for double hit. Spoke with patient and his ex- . Explained that it is curable. Not sure why his LFTs are elevated but probably related. Hepatitis panel negative. Bone Marrow results pending but preliminarily is normal. Trying to get staging PET. If it cannot be done, will proceed with therapy as he is symptomatic and getting worse. He is agreeable to therapy. With LFT elevation it is recommended to cut doxorubicin by 50%. I will check an ECHO and, if it is abnormal, change doxo to etoposide. I am recommending R-CHOP as I don't think a more aggressive therapy would be tolerated. 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 At this point, he doesn't meet criteria of HLH. Subjective: Ex- with patient. No acute complaints. No appetite and not eating well. Objective: Vital Signs Temp Pulse Resp BP Pulse Ox 36.8 C 87 16 115/67 93 01/14/17 08:30 01/14/17 08:30 01/14/17 08:30 01/14/17 08:30 01/14/17 08:30 Laboratory Results 01/13/17 17:05 01/14/17 04:49 01/13/17 01/14/17 01/15/17 05:59 05:59 05:59 Intake Total 1160 850 Output Total 1525 750 110 Balance -365 100 -110 PT 14.1 SEC (12.0-15.0) 01/13/17 17:05 INR 1.10 (0.83-1.16) 01/13/17 17:05 Laboratory Tests 01/09/17 01/11/17 01/12/17 04:31 04:46 04:38 Corrected Retic Count PT APTT Fibrinogen D-Dimer Sodium 119 L* 120 L Creatinine 0.5 L 0.5 L Uric Acid AST ALT Alkaline Phosphatase Lactate Dehydrogenase Triglycerides Hep Bs Antigen Hep B Core IgM Ab NEGATIVE 01/13/17 01/13/17 01/13/17 05:19 17:05 17:05 Corrected Retic Count PT APTT Fibrinogen D-Dimer Sodium 123 L Creatinine 0.5 L Uric Acid 1.6 L AST 477 H ALT 275 H Alkaline Phosphatase 1297 H Lactate Dehydrogenase 1460 H Triglycerides 189 H Hep Bs Antigen NEGATIVE Hep B Core IgM Ab 01/13/17 01/13/17 17:05 17:05 Corrected Retic Count 1.5 PT 14.1 APTT 44.7 H Fibrinogen 938 H D-Dimer 3.62 H Sodium Creatinine Uric Acid AST ALT Alkaline Phosphatase Lactate Dehydrogenase Triglycerides Hep Bs Antigen Hep B Core IgM Ab - Time Spent With Patient Time Spent With Patient: >35 min Physical Exam - Physical Exam General Appearance: no apparent distress, cachetic EENT: pharynx normal Respiratory: lungs clear Cardiac/Chest: regular rate, rhythm ICD10 Worksheet Patient Problems: Problems Problem Status Onset Chronic hyponatremia Acute Dehydration Acute Failure to thrive Acute Mediastinal adenopathy Acute
[2017-01-14 15:43] LABS: FINAL DIAGNOSIS See Comments; MICROSCOPIC DESCRIPTION See Comments; SPECIAL STUDIES See Comments
--- NOTE | 2017-01-14 16:03 | ECHO ---
[id number] Preliminary + + [address] : : [place] [id number] : : [phone] + + Adult Echocardiographic Report + ----+ :Name: BULMARO DENNY CStudy Date: 01/14/2017 03:25 PM BP: 116/67 mmHg : : Hospital Admission Number: [id number] Location: 154: :: 1950 Gender: Male Height: 70 in : :Age: 66 yrs Race: WH Weight: 120 lb : :Reason For Study: evaluate lv ejection fraction : : BSA: 1.7 meters2 : :History: pre-chemotherapy : + ----+ MMode/2D Measurements \T\ Calculations IVSd: 0.90 cm RVDd: 2.6 cm FS: 35.1 % Ao root diam: LVPWd: 0.83 cm LVIDd: 4.1 cm EDV(Teich): 2.5 cm LVIDs: 2.6 cm 72.9 ml LA dimension: ESV(Teich): 2.8 cm 25.6 ml EF(Teich): 65.0 % LVLd ap4: 8.9 cm SV(MOD-sp4): EDV(MOD-sp4): 77.0 ml 102.0 ml LVLs ap4: 7.0 cm ESV(MOD-sp4): 25.0 ml EF(MOD-sp4): 75.5 % Normal Measurement Values: + + :LVIDd (3.5-5.7cm) IVSd (0.6-1.1cm) LVPWd (0.6-1.1cm) Aortic Root (2.0-3.7cm)Left Atrium (1.5-4.0cm): :LV Vol(d) (76-115ml) LV Vol(s) (29-48ml) Ejec Fraction (50-65%)PV Jose M (0.6- 1.2m/s) TV Jose M (0.4-1.0m/s) : :MV E Jose M (0.8-1.0m/s)MV A Jose M (0.3-1.0m/s)LVOT Jose M (0.7-1.2m/s) Asc Ao Jose M ( 0.9-1.8m/s) : + + Doppler Measurements \T\ Calculations MV E max jose m: Ao V2 max: LV V1 max: PA V2 max: 66.6 cm/sec 152.0 cm/sec 122.0 cm/sec 99.0 cm/sec MV A max jose m: Ao max P.2 mmHgLV V1 max PG: PA max P.3 cm/sec 6.0 mmHg 3.9 mmHg MV E/A: 1.2 MV dec time: 0.18 sec Left Ventricle The left ventricle is normal in size and function. There is normal left ventricular wall thickness. Ejection Fraction = 65-70%. No regional wall motion abnormalities noted. Right Ventricle The right ventricle is normal in size and function. Atria The left atrial size is normal. Right atrial size is normal. Mitral Valve The mitral valve is normal in structure and function. No significant mitral valve stenosis. There is trace mitral regurgitation. Tricuspid Valve The tricuspid valve is normal in structure and function. There is no tricuspid stenosis. There is trace tricuspid regurgitation. Aortic Valve The aortic valve is trileaflet. There is no aortic stenosis. There is no aortic insufficiency. Pulmonic Valve The pulmonic valve is normal in structure and function. There is no pulmonic valvular regurgitation. Great Vessels The aortic root is normal size. Pericardium/Pleural trivial pericardial effusion. Conclusion A two-dimensional transthoracic echocardiogram with M-mode and Doppler was performed. Ejection Fraction = 65-70%. There is trace mitral regurgitation. There is trace tricuspid regurgitation. trivial pericardial effusion. No regional wall motion abnormalities noted. The left ventricle is normal in size and function. Final Reading Physician: electronically signed on 01/14/2017 04:00 PM Ordering Physician: Olga Lidia Rain Performed By: Emili Cabezas
[2017-01-14 19:09] LABS: IMMUNOGLOBULIN A 199 mg/dL (61 - 356); IMMUNOGLOBULIN G 1090 mg/dL (767 - 1590); IMMUNOGLOBULIN M 46 mg/dL (37 - 286)
[2017-01-15 04:37] LABS: ADD DIFF? YES; ADD MORPH? NO; FRAGMENT RBC FLAG 0 (0-99); HEMATOCRIT 28.9 % (40.0-51.0); HEMOGLOBIN 9.7 g/dL (13.7-17.5); LEFT SHIFT FLG 30 (0-99); LIPEMIA HEMOLYSIS FLAG 80 (0-99); MEAN CELL HEMOGLOBIN 26.6 pg (27.9-34.1); MEAN CELL HEMOGLOBIN CONCENTR. 33.6 g/dL (32.4-36.7); MEAN CELL VOLUME 79.2 fL (81.5-99.8); MEAN PLATELET VOLUME 7.8 fL (8.7-11.7); PLATELET CLUMPS FLAG 10 (0-99); PLATELET COUNT 260 10^3/uL (150-400); RED BLOOD CELL COUNT 3.65 10^6/uL (4.40-6.38); RED CELL DISTRIBUTION WIDTH 16.7 % (11.5-15.2)
[2017-01-15 04:40] LABS: ADD SCAN? NO; ATYPICAL LYMPHOCYTE FLAG 110 (0-99)
[2017-01-15 04:54] LABS: ALANINE AMINOTRANSFERASE 195 IU/L (21-72); ALBUMIN 2.3 g/dL (3.5-5.0); ALKALINE PHOSPHATASE 1141 IU/L (38-126); ANION GAP 4 mEq/L (8-16); ASPARTATE AMINOTRANSFERASE 223 IU/L (17-59); BILIRUBIN,TOTAL 0.9 mg/dL (0.1-1.4); CALCIUM 7.7 mg/dL (8.5-10.4); CARBON DIOXIDE 26 mEq/l (22-31); CHLORIDE 91 mEq/L (97-110); CREATININE 0.5 mg/dL (0.7-1.3); GLOMERULAR FILTRATION RATE > 60; GLUCOSE 97 mg/dL (70-100); POTASSIUM 4.2 mEq/L (3.5-5.2); SODIUM 121 mEq/L (134-144); TOTAL PROTEIN 5.4 g/dL (6.3-8.2)
[2017-01-15 05:10] LABS: MICROCYTES 1+; PLATELET ESTIMATE ADEQUATE (ADEQ)
[2017-01-15] MEDS: SODIUM CHLORIDE 1,000 MG TAB PO SCH ×3 (08:17→16:41)
[2017-01-15] MEDS: ENOXAPARIN 40 MG/0.4 ML SYR SC SCH (08:17)
--- NOTE | 2017-01-15 11:41 | HOSPPROG ---
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 -ACUTE ENCEPHALOPATHY IMPROVING -SEVERE PROTEIN CALORIE MALNUTRITION AND WEIGHT LOSS -HYPONATREMIA FROM SIADH -ANEMIA OF MALIGNANCY PLANS: -await final lymphoma evaluation results -continue water restriction and sodium supplements; Na a bit lower, but he is really minimally symptomatic, further fluid restriction would likely bother him more than current sxs; can follow closely and tighten restriction for further decreases; continue current salt supplement at this time -he should probably have an hiv test done as well, will review w Dr Rain SUBJECTIVE: The patient denies any pain or discomfort, nausea, dyspnea, fever symptoms OBJECTIVE Vitals reviewed: Stable without fever Exam: alert oriented skin warm dry color ok resps not labored lungs clear BSs heart regular abd soft nondistended nontender, bowel sounds present limbs warm, no edema iv site ok Laboratory data: Sodium approximately stable at 121 other chemistries stable Objective: Vital Signs Temp Pulse Resp BP Pulse Ox 37.4 C 93 18 114/67 92 01/15/17 08:00 01/15/17 08:00 01/15/17 08:00 01/15/17 08:00 01/15/17 08:00 Laboratory Results 01/15/17 04:20 01/15/17 04:20 01/14/17 01/15/17 01/16/17 06:59 06:59 06:59 Intake Total 850 1200 Output Total 750 510 100 Balance 100 690 -100 PT 14.1 SEC (12.0-15.0) 01/13/17 17:05 INR 1.10 (0.83-1.16) 01/13/17 17:05 ICD10 Worksheet Patient Problems: Problems Problem Status Onset Chronic hyponatremia Acute Dehydration Acute Failure to thrive Acute Mediastinal adenopathy Acute
--- NOTE | 2017-01-15 15:02 | SOAPPROG ---
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 Tissue to be sent for double hit. Once returned from PET, will start R-CHOP. LFTs are better so will only decrease LFTs by 25%. He is agreeable to therapy. I don't think a more aggressive therapy would be tolerated. 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 At this point, he doesn't meet criteria of HLH. Soluble CD25 pending. Subjective: Doing about the same without any new complaints. Very fatigued. No appetite Objective: Vital Signs Temp Pulse Resp BP Pulse Ox 37.4 C 93 18 114/67 92 01/15/17 08:00 01/15/17 08:00 01/15/17 08:00 01/15/17 08:00 01/15/17 08:00 Laboratory Results 01/15/17 04:20 01/15/17 04:20 01/14/17 01/15/17 01/16/17 05:59 05:59 05:59 Intake Total 850 1200 Output Total 750 510 100 Balance 100 690 -100 PT 14.1 SEC (12.0-15.0) 01/13/17 17:05 INR 1.10 (0.83-1.16) 01/13/17 17:05 Physical Exam - Physical Exam General Appearance: cachetic EENT: pharynx normal Respiratory: lungs clear Cardiac/Chest: regular rate, rhythm Abdomen: non-tender, soft ICD10 Worksheet Patient Problems: Problems Problem Status Onset Chronic hyponatremia Acute Dehydration Acute Failure to thrive Acute Mediastinal adenopathy Acute
[2017-01-15] MEDS: predniSONE 20 MG TAB PO SCH (16:41)
[2017-01-15] MEDS ORDERED: ACETAMINOPHEN 325 MG TAB PO SCH (17:30)
[2017-01-15] MEDS ORDERED: NS IV SCH (18:00)
[2017-01-15] MEDS ORDERED: riTUXimab 600 MG in NS 540 ML IV SCH (18:00)
[2017-01-15] MEDS ORDERED: RITUXIMAB IV SCH (18:00)
[2017-01-15] MEDS: ONDANSETRON 4 MG/2 ML VIAL IVP PRN (20:20)
[2017-01-15] MEDS: LORazepam 2 MG/ML INJ IVP PRN (21:50)
[2017-01-16 04:45] LABS: ADD DIFF? YES; ADD MORPH? NO; ADD SCAN? NO; ATYPICAL LYMPHOCYTE FLAG 70 (0-99); FRAGMENT RBC FLAG 0 (0-99); HEMATOCRIT 32.5 % (40.0-51.0); HEMOGLOBIN 10.7 g/dL (13.7-17.5); LEFT SHIFT FLG 40 (0-99); LIPEMIA HEMOLYSIS FLAG 80 (0-99); MEAN CELL HEMOGLOBIN 26.7 pg (27.9-34.1); MEAN CELL HEMOGLOBIN CONCENTR. 32.9 g/dL (32.4-36.7); MEAN PLATELET VOLUME 7.8 fL (8.7-11.7); PLATELET CLUMPS FLAG 70 (0-99); PLATELET COUNT 243 10^3/uL (150-400); RED BLOOD CELL COUNT 4.01 10^6/uL (4.40-6.38); RED CELL DISTRIBUTION WIDTH 16.9 % (11.5-15.2)
[2017-01-16 04:59] LABS: ALANINE AMINOTRANSFERASE 190 IU/L (21-72); ALBUMIN 2.6 g/dL (3.5-5.0); ALKALINE PHOSPHATASE 1083 IU/L (38-126); ANION GAP 8 mEq/L (8-16); ASPARTATE AMINOTRANSFERASE 216 IU/L (17-59); BILIRUBIN,TOTAL 0.8 mg/dL (0.1-1.4); CALCIUM 8.5 mg/dL (8.5-10.4); CARBON DIOXIDE 26 mEq/l (22-31); CHLORIDE 99 mEq/L (97-110); CREATININE 0.5 mg/dL (0.7-1.3); GLOMERULAR FILTRATION RATE > 60; GLUCOSE 169 mg/dL (70-100); POTASSIUM 4.1 mEq/L (3.5-5.2); SODIUM 133 mEq/L (134-144); URIC ACID 2.4 mg/dL (3.5-8.5)
[2017-01-16] MEDS: SODIUM CHLORIDE 1,000 MG TAB PO SCH ×3 (05:07→12:59)
[2017-01-16 05:22] LABS: GIANT PLATELETS PRESENT; MICROCYTES 1+; PLATELET ESTIMATE ADEQUATE (ADEQ); POLYCHROMASIA 1+
[2017-01-16] MEDS ORDERED: NS 1,000 ML IV SCH (09:00)
[2017-01-16] MEDS: ONDANSETRON 4 MG/2 ML VIAL IVP PRN (09:18)
[2017-01-16] MEDS: ALLOPURINOL 300 MG TAB PO SCH (09:19)
[2017-01-16] MEDS: predniSONE 20 MG TAB PO SCH (09:19)
[2017-01-16] MEDS: ENOXAPARIN 40 MG/0.4 ML SYR SC SCH (09:20)
[2017-01-16 09:40] LABS: ALANINE AMINOTRANSFERASE 194 IU/L (21-72); ALBUMIN 2.8 g/dL (3.5-5.0); ALKALINE PHOSPHATASE 1212 IU/L (38-126); ANION GAP 10 mEq/L (8-16); ASPARTATE AMINOTRANSFERASE 198 IU/L (17-59); BILIRUBIN,TOTAL 0.8 mg/dL (0.1-1.4); CALCIUM 8.9 mg/dL (8.5-10.4); CARBON DIOXIDE 26 mEq/l (22-31); CHLORIDE 99 mEq/L (97-110); CREATININE 0.5 mg/dL (0.7-1.3); GLOMERULAR FILTRATION RATE > 60; GLUCOSE 206 mg/dL (70-100); MAGNESIUM 2.2 mg/dL (1.6-2.3); POTASSIUM 3.9 mEq/L (3.5-5.2); SODIUM 135 mEq/L (134-144); TOTAL PROTEIN 6.2 g/dL (6.3-8.2); URIC ACID 2.9 mg/dL (3.5-8.5)
--- NOTE | 2017-01-16 09:40 | SOAPPROG ---
SOAP Progress Note Assessment/Plan: Assessment: 1. DLBCL, stage IVB (extensive bony involvement), non-GCB. myc and bcl2 pending 2. SIADH 3. Malnutrition 4. Rituximab infusion reaction (hypothermia) - infusion complete, symptoms have now resolved. d/w RN overnight several times Plan: - proceed w/ CHOP today. Doxorubicin reduced by 25% per Dr. Rain. - will monitor for tumor lysis; start allopurinol and IV fluids - Zarxio (filgrastim) to start tomorrow - encourage increased caloric intake. 01/16/17 09:38 Subjective: got rituxan last night. hypothermic. did not sleep well. Objective: exam: cachectic, breathing comfortably OP clear Lungs CTAB CV RRR no MGr Abd: +BS NT ND Ext: no edema Neuro: a+ox3. Vital Signs Temp Pulse Resp BP Pulse Ox 35.7 C L 84 22 H 119/78 93 01/16/17 07:50 01/16/17 07:50 01/16/17 07:50 01/16/17 07:50 01/16/17 07:50 Laboratory Results 01/16/17 04:32 01/15/17 01/16/17 01/17/17 05:59 05:59 05:59 Intake Total 1200 550 Output Total 510 630 400 Balance 690 -80 -400 PT 14.1 SEC (12.0-15.0) 01/13/17 17:05 INR 1.10 (0.83-1.16) 01/13/17 17:05 ICD10 Worksheet Patient Problems: Problems Problem Status Onset Chronic hyponatremia Acute Dehydration Acute Failure to thrive Acute Mediastinal adenopathy Acute
[2017-01-16 11:11] LABS: LACTATE DEHYDROGENASE 2071 IU/L (313-618)
[2017-01-16] MEDS ORDERED: PALONOSETRON HCL 0.25 MG/5 ML VIAL IVP SCH (13:30)
[2017-01-16] MEDS ORDERED: DEXAMETHASONE SOD PHOSPHATE 10 MG in NS 50 ML IV SCH (13:30)
[2017-01-16] MEDS ORDERED: CYCLOPHOSPHAMIDE IV SCH (14:00)
[2017-01-16] MEDS ORDERED: NS IV SCH (14:00)
[2017-01-16] MEDS ORDERED: DOXORUBICIN IV SCH (14:30)
[2017-01-16] MEDS ORDERED: vinCRIStine 2 MG in NS 59 ML IV SCH (14:40)
[2017-01-16] MEDS: LORazepam 2 MG/ML INJ IVP PRN ×2 (14:45→20:35)
[2017-01-16] MEDS ORDERED: FAMOTIDINE 20 MG TAB PO SCH (15:00)
--- NOTE | 2017-01-16 16:51 | HOSPPROG ---
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 Head of rough night last night did not sleep well. Today quite exhausted and has been sleeping throughout the day. Still not eating well. Denies pain shortness of breath or fever symptoms OBJECTIVE Vitals reviewed: Stable without fever Exam: Somnolent but arousable and oriented skin warm dry color ok resps not labored lungs clear BSs heart regular abd soft nondistended nontender, bowel sounds present limbs warm, no edema iv site ok Laboratory data: Sodium has finally responded and is significantly higher today, in fact probably higher than we would like it given the time course. Objective: Vital Signs Temp Pulse Resp BP Pulse Ox 35.5 C L 62 18 123/66 H 97 01/16/17 16:00 01/16/17 16:00 01/16/17 16:00 01/16/17 16:00 01/16/17 16:00 Laboratory Results 01/16/17 04:32 01/16/17 09:13 01/15/17 01/16/17 01/17/17 06:59 06:59 06:59 Intake Total 1200 550 628 Output Total 510 1030 Balance 690 -480 628 PT 14.1 SEC (12.0-15.0) 01/13/17 17:05 INR 1.10 (0.83-1.16) 01/13/17 17:05 ICD10 Worksheet Patient Problems: Problems Problem Status Onset Chronic hyponatremia Acute Dehydration Acute Failure to thrive Acute Mediastinal adenopathy Acute
[2017-01-16] MEDS: FAMOTIDINE 20 MG/NACL 50 ML IV SCH (21:50)
[2017-01-17 04:54] LABS: ADD DIFF? YES; ADD MORPH? NO; ADD SCAN? NO; ATYPICAL LYMPHOCYTE FLAG 0 (0-99); FRAGMENT RBC FLAG 0 (0-99); HEMATOCRIT 30.9 % (40.0-51.0); LEFT SHIFT FLG 30 (0-99); LIPEMIA HEMOLYSIS FLAG 80 (0-99); MEAN CELL HEMOGLOBIN 26.6 pg (27.9-34.1); MEAN CELL HEMOGLOBIN CONCENTR. 32.4 g/dL (32.4-36.7); MEAN CELL VOLUME 82.2 fL (81.5-99.8); MEAN PLATELET VOLUME 8.1 fL (8.7-11.7); PLATELET CLUMPS FLAG 20 (0-99); PLATELET COUNT 273 10^3/uL (150-400); RED BLOOD CELL COUNT 3.76 10^6/uL (4.40-6.38); RED CELL DISTRIBUTION WIDTH 17.2 % (11.5-15.2)
[2017-01-17 05:24] LABS: ALANINE AMINOTRANSFERASE 143 IU/L (21-72); ALBUMIN 2.3 g/dL (3.5-5.0); ALKALINE PHOSPHATASE 829 IU/L (38-126); ANION GAP 6 mEq/L (8-16); ASPARTATE AMINOTRANSFERASE 120 IU/L (17-59); BILIRUBIN,TOTAL 0.5 mg/dL (0.1-1.4); CALCIUM 8.1 mg/dL (8.5-10.4); CARBON DIOXIDE 24 mEq/l (22-31); CHLORIDE 106 mEq/L (97-110); CREATININE 0.5 mg/dL (0.7-1.3); GLOMERULAR FILTRATION RATE > 60; GLUCOSE 147 mg/dL (70-100); POTASSIUM 3.6 mEq/L (3.5-5.2); SODIUM 136 mEq/L (134-144); TOTAL PROTEIN 5.5 g/dL (6.3-8.2); URIC ACID 1.8 mg/dL (3.5-8.5)
[2017-01-17 05:51] LABS: PLATELET ESTIMATE ADEQUATE (ADEQ); POLYCHROMASIA 1+
[2017-01-17] MEDS ORDERED: PROCHLORPERAZINE MALEATE 10 MG TAB PO PRN (09:20)
[2017-01-17] MEDS: ALLOPURINOL 300 MG TAB PO SCH (09:44)
[2017-01-17] MEDS: predniSONE 20 MG TAB PO SCH (09:44)
[2017-01-17] MEDS: FAMOTIDINE 20 MG/NACL 50 ML IV SCH ×2 (09:45→21:01)
[2017-01-17] MEDS: ENOXAPARIN 40 MG/0.4 ML SYR SC SCH (09:46)
--- NOTE | 2017-01-17 11:23 | SOAPPROG ---
SOAP Progress Note Assessment/Plan: Assessment: 1. DLBCL, stage IVB (extensive bony involvement), non-GCB. myc and bcl2 pending 2. SIADH 3. Malnutrition 4. Rituximab infusion reaction (hypothermia) - infusion complete, symptoms have now resolved. d/w RN overnight several times Tolerated R-CHOP well. No tumor lysis. Plan: - d/c IV fluids. continue allopurinol - Zarxio to start today - we need to work on nutrition and rehabiliation. NExt cycle of chemo in 3 weeks. d/w dr cortez Subjective: appetite somewhat better. Objective: exam: chronically ill Lungs CTAB CV RRR no MGR Abd: +BS NT ND Ext: no edema Vital Signs Temp Pulse Resp BP Pulse Ox 35.6 C L 57 L 16 136/77 H 95 01/17/17 10:28 01/17/17 08:51 01/17/17 08:51 01/17/17 08:51 01/17/17 08:51 Laboratory Results 01/17/17 04:00 01/17/17 04:00 01/16/17 01/17/17 01/18/17 05:59 05:59 05:59 Intake Total 550 2718 Output Total 630 880 Balance -80 1838 PT 14.1 SEC (12.0-15.0) 01/13/17 17:05 INR 1.10 (0.83-1.16) 01/13/17 17:05 ICD10 Worksheet Patient Problems: Problems Problem Status Onset Chronic hyponatremia Acute Dehydration Acute Failure to thrive Acute Mediastinal adenopathy Acute
--- NOTE | 2017-01-17 14:58 | HOSPPROG ---
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 Coker -await final lymphoma evaluation results -monitor closely for side effects or complications of chemotherapy, follow uric acid closely -will continue water restriction, consider loosening that tomorrow if sodium remains stable -I have ordered HIV test which is still pending SUBJECTIVE: Has now received all of his chemotherapy medications. Head of rough night last night did not sleep well. Today quite exhausted and has been sleeping throughout the day. Still not eating well. Denies pain shortness of breath or fever symptoms OBJECTIVE Vitals reviewed: Stable without fever Exam: Somnolent but arousable and oriented skin warm dry color ok resps not labored lungs clear BSs heart regular abd soft nondistended nontender, bowel sounds present limbs warm, no edema iv site ok Laboratory data: liver enzymes notably better today Cell count stable today with mild anemia unchanged Objective: Vital Signs Temp Pulse Resp BP Pulse Ox 35.7 C L 73 17 112/75 90 L 01/17/17 14:13 01/17/17 11:36 01/17/17 11:36 01/17/17 11:36 01/17/17 11:36 Laboratory Results 01/17/17 04:00 01/17/17 04:00 01/16/17 01/17/17 01/18/17 06:59 06:59 06:59 Intake Total 550 2718 Output Total 1030 480 260 Balance -480 2238 -260 PT 14.1 SEC (12.0-15.0) 01/13/17 17:05 INR 1.10 (0.83-1.16) 01/13/17 17:05 ICD10 Worksheet Patient Problems: Problems Problem Status Onset Chronic hyponatremia Acute Dehydration Acute Failure to thrive Acute Mediastinal adenopathy Acute
[2017-01-17] MEDS: FILGRASTIM-SNDZ 300 MCG/0.5 ML SYR SC SCH (16:32)
[2017-01-17] MEDS: CALCIUM CARBONATE 500 MG CHEWABLE TAB PO PRN (17:15)
[2017-01-18] MEDS: CALCIUM CARBONATE 500 MG CHEWABLE TAB PO PRN (00:17)
[2017-01-18] MEDS: LORazepam 2 MG/ML INJ IVP PRN (00:54)
[2017-01-18 05:10] LABS: ADD DIFF? YES; ADD MORPH? NO; ADD SCAN? NO; ATYPICAL LYMPHOCYTE FLAG 0 (0-99); FRAGMENT RBC FLAG 0 (0-99); HEMATOCRIT 30.1 % (40.0-51.0); HEMOGLOBIN 9.6 g/dL (13.7-17.5); LEFT SHIFT FLG 20 (0-99); LIPEMIA HEMOLYSIS FLAG 80 (0-99); MEAN CELL HEMOGLOBIN 26.5 pg (27.9-34.1); MEAN CELL HEMOGLOBIN CONCENTR. 31.9 g/dL (32.4-36.7); MEAN CELL VOLUME 83.1 fL (81.5-99.8); MEAN PLATELET VOLUME 8.2 fL (8.7-11.7); PLATELET CLUMPS FLAG 0 (0-99); PLATELET COUNT 286 10^3/uL (150-400); RED BLOOD CELL COUNT 3.62 10^6/uL (4.40-6.38); RED CELL DISTRIBUTION WIDTH 17.5 % (11.5-15.2)
[2017-01-18 05:35] LABS: ALANINE AMINOTRANSFERASE 115 IU/L (21-72); ALBUMIN 2.3 g/dL (3.5-5.0); ALKALINE PHOSPHATASE 604 IU/L (38-126); ANION GAP 6 mEq/L (8-16); ASPARTATE AMINOTRANSFERASE 82 IU/L (17-59); BILIRUBIN,TOTAL 0.6 mg/dL (0.1-1.4); CALCIUM 8.6 mg/dL (8.5-10.4); CARBON DIOXIDE 26 mEq/l (22-31); CHLORIDE 110 mEq/L (97-110); CREATININE 0.5 mg/dL (0.7-1.3); GLOMERULAR FILTRATION RATE > 60; GLUCOSE 132 mg/dL (70-100); SODIUM 142 mEq/L (134-144); TOTAL PROTEIN 5.2 g/dL (6.3-8.2); URIC ACID 2.1 mg/dL (3.5-8.5)
[2017-01-18 06:20] LABS: ECHINOCYTES 1+; PLATELET ESTIMATE ADEQUATE (ADEQ); POLYCHROMASIA 1+
[2017-01-18 07:57] LABS: MISCELLANEOUS TEST See Comments
[2017-01-18] MEDS: ALLOPURINOL 300 MG TAB PO SCH (09:52)
[2017-01-18] MEDS: FAMOTIDINE 20 MG/NACL 50 ML IV SCH ×2 (09:52→19:54)
[2017-01-18] MEDS: predniSONE 20 MG TAB PO SCH (09:52)
[2017-01-18] MEDS: ENOXAPARIN 40 MG/0.4 ML SYR SC SCH (09:55)
--- NOTE | 2017-01-18 11:35 | HOSPPROG ---
Hospitalist Progress Note Assessment/Plan: This patient presenting with severe fatigue, anorexia, and confusion, was found to have extensive disease of mediastinum, axillary nodes, and skeleton, now diagnosed as lymphoma and has received R-CHOP therapy. He has tolerated the tx well but remains severely debilitated and with anorexia. At this time he is developing a significant cough productive of large volume dark sputum but no other resp sxs. 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 Cherry -CXR today to eval productive cough -awaiting final lymphoma evaluation results -monitor closely for side effects or complications of chemotherapy; there has been no tumor lysis syndrome -can stop water restriction now, follow Na SUBJECTIVE: Has now received all of his chemotherapy medications. Head of rough night last night did not sleep well. Today quite exhausted and has been sleeping throughout the day. Still not eating well. Denies pain shortness of breath or fever symptoms OBJECTIVE Vitals reviewed: Stable without fever Exam: Somnolent but arousable and oriented skin warm dry color ok resps not labored lungs clear BSs heart regular abd soft nondistended nontender, bowel sounds present limbs warm, no edema iv site ok Laboratory data: HIV now back is negative liver enzymes notably better today Cell count stable today with mild anemia unchanged Objective: Vital Signs Temp Pulse Resp BP Pulse Ox 35.8 C L 81 16 127/77 H 94 01/18/17 07:32 01/18/17 07:32 01/18/17 07:32 01/18/17 07:32 01/18/17 07:32 Laboratory Results 01/18/17 04:45 01/18/17 04:45 01/17/17 01/18/17 01/19/17 06:59 06:59 06:59 Intake Total 2718 1250 Output Total 480 760 Balance 2238 490 PT 14.1 SEC (12.0-15.0) 04/12/17 17:05 INR 1.10 (0.83-1.16) 01/13/17 17:05 ICD10 Worksheet Patient Problems: Problems Problem Status Onset Chronic hyponatremia Acute Dehydration Acute Failure to thrive Acute Mediastinal adenopathy Acute
[2017-01-18] MEDS ORDERED: PROCHLORPERAZINE MALEATE 25 MG SUPPR PR PRN (11:52)
--- NOTE | 2017-01-18 13:29 | SOAPPROG ---
SOAP Progress Note Assessment/Plan: Assessment: Assessment: 1. DLBCL, stage IVB (extensive bony involvement), non-GCB. myc and bcl2 pending 2. SIADH, improved 3. Malnutrition 4. Rituximab infusion reaction (hypothermia) - infusion complete, symptoms have now resolved. 5. cough without fever, cxr pending Tolerated R-CHOP well. No tumor lysis. Plan: - Continue allopurinol, may stop over the next few days - Zarxio to continue - continue pt - check cxr today 01/18/17 13:26 01/18/17 13:29 Subjective: Tired, slept poorly last night Objective: Vital Signs Temp Pulse Resp BP Pulse Ox 96.4 F L 69 18 134/72 H 94 01/18/17 12:00 01/18/17 12:00 01/18/17 12:00 01/18/17 12:00 01/18/17 12:00 Laboratory Results 01/18/17 04:45 01/18/17 04:45 01/17/17 01/18/17 01/19/17 05:59 05:59 05:59 Intake Total 2718 1150 100 Output Total 880 760 160 Balance 1838 390 -60 PT 14.1 SEC (12.0-15.0) 01/13/17 17:05 INR 1.10 (0.83-1.16) 01/13/17 17:05 Physical Exam - Physical Exam General Appearance: other (appears chronically ill) Respiratory: lungs clear Abdomen: normal bowel sounds, non-tender ICD10 Worksheet Patient Problems: Problems Problem Status Onset Chronic hyponatremia Acute Dehydration Acute Failure to thrive Acute Mediastinal adenopathy Acute
[2017-01-18] MEDS: FILGRASTIM-SNDZ 300 MCG/0.5 ML SYR SC SCH (16:53)
[2017-01-19 04:12] LABS: ADD DIFF? YES; ADD MORPH? NO; ATYPICAL LYMPHOCYTE FLAG 0 (0-99); FRAGMENT RBC FLAG 0 (0-99); HEMATOCRIT 31.3 % (40.0-51.0); HEMOGLOBIN 10.3 g/dL (13.7-17.5); LIPEMIA HEMOLYSIS FLAG 80 (0-99); MEAN CELL HEMOGLOBIN 26.6 pg (27.9-34.1); MEAN CELL HEMOGLOBIN CONCENTR. 32.9 g/dL (32.4-36.7); MEAN CELL VOLUME 80.9 fL (81.5-99.8); MEAN PLATELET VOLUME 8.1 fL (8.7-11.7); PLATELET CLUMPS FLAG 0 (0-99); PLATELET COUNT 282 10^3/uL (150-400); RED BLOOD CELL COUNT 3.87 10^6/uL (4.40-6.38); RED CELL DISTRIBUTION WIDTH 17.7 % (11.5-15.2)
[2017-01-19 04:20] LABS: ADD SCAN? NO; LEFT SHIFT FLG 130 (0-99)
[2017-01-19 04:42] LABS: ALANINE AMINOTRANSFERASE 114 IU/L (21-72); ALBUMIN 2.5 g/dL (3.5-5.0); ALKALINE PHOSPHATASE 582 IU/L (38-126); ANION GAP 8 mEq/L (8-16); ASPARTATE AMINOTRANSFERASE 66 IU/L (17-59); BILIRUBIN,TOTAL 0.6 mg/dL (0.1-1.4); CARBON DIOXIDE 27 mEq/l (22-31); CHLORIDE 110 mEq/L (97-110); CREATININE 0.5 mg/dL (0.7-1.3); GLOMERULAR FILTRATION RATE > 60; GLUCOSE 144 mg/dL (70-100); POTASSIUM 3.4 mEq/L (3.5-5.2); SODIUM 145 mEq/L (134-144); TOTAL PROTEIN 5.4 g/dL (6.3-8.2)
[2017-01-19 05:00] LABS: PLATELET ESTIMATE ADEQUATE (ADEQ)
[2017-01-19 05:04] LABS: MICROCYTES 1+
[2017-01-19] MEDS: FAMOTIDINE 20 MG/NACL 50 ML IV SCH ×2 (08:33→22:10)
[2017-01-19] MEDS: ONDANSETRON 4 MG/2 ML VIAL IVP PRN ×2 (09:18→14:54)
--- NOTE | 2017-01-19 09:28 | HOSPPROG ---
Hospitalist Progress Note Assessment/Plan: # DLBCL s/p R-chop # hypothermic reaction to rituxan # emesis - concerned for SBO - check CT abd/pelvis # leukocytosis - s/p granix # hypernatremia - was hyponatremic - start IVF # severe protein calorie malnutrition - needs nutrition soon - TPN vs enteral # cough - CXR clear, follow sputum cx # acute encephalopathy - difficult to assess today as he did not speak to me # anemia d/t malignancy # deconditioning - PT ## CXR personally reviewed chart reviewed Subjective: very withdrawn, not speaking to me; dark brown emesis per RN Objective: Vital Signs Temp Pulse Resp BP Pulse Ox 36.1 C 76 16 136/80 H 91 L 01/19/17 04:44 01/19/17 04:44 01/19/17 04:44 01/19/17 04:44 01/19/17 04:44 Microbiology 01/18/17 11:50 - Final Sputum, Expectorated Laboratory Results 01/19/17 04:00 01/19/17 04:00 01/18/17 01/19/17 01/20/17 05:59 05:59 05:59 Intake Total 1150 930 150 Output Total 760 925 Balance 390 5 150 PT 14.1 SEC (12.0-15.0) 01/13/17 17:05 INR 1.10 (0.83-1.16) 01/13/17 17:05 - Physical Exam Constitutional: no apparent distress, appears nourished Cardiovascular: regular rate and rhythym, no murmur, rub, or gallop, systolic murmur Respiratory: no respiratory distress, no rales or rhonchi, clear to auscultation Gastrointestinal: normoactive bowel sounds, soft, non-tender abdomen, no palpable masses, other (dark brown emesis) ICD10 Worksheet Patient Problems: Problems Problem Status Onset Chronic hyponatremia Acute Dehydration Acute Failure to thrive Acute Mediastinal adenopathy Acute
[2017-01-19] MEDS ORDERED: IOPAMIDOL (ISOVUE-300) 100 ML BTL IV ONE (09:32)
[2017-01-19] MEDS: ALLOPURINOL 300 MG TAB PO SCH (09:58)
[2017-01-19] MEDS: predniSONE 20 MG TAB PO SCH (09:58)
[2017-01-19] MEDS: ENOXAPARIN 40 MG/0.4 ML SYR SC SCH (09:58)
[2017-01-19] MEDS ORDERED: D10W 1,000 ML IV PRN (10:37)
--- NOTE | 2017-01-19 11:10 | CPEKG ---
Heart Rate: 75 RR Interval: 800 QRSD Interval: 86 QT Interval: 400 QTC Interval: 447 QRS [place]: -6 T Wave [place]: 69 EKG Severity - ABNORMAL ECG - EKG Impression: SINUS RHYTHM Electronically Signed By: Raoul Carpio 20-Jan-2017 08:25:10
--- NOTE | 2017-01-19 11:45 | SOAPPROG ---
SOAP Progress Note Assessment/Plan: Assessment: Assessment: 1. DLBCL, stage IVB (extensive bony involvement), non-GCB. myc and bcl2 pending 2. SIADH, improved 3. Malnutrition 4. Rituximab infusion reaction (hypothermia) - infusion complete, symptoms have now resolved. 5. cough without fever, cxr pending 6. acute onset emesis, ct scan shows ileus Plan: - Continue allopurinol, may stop over the next few days - Zarxio to continue - Hydrate, may need ng tube, may need tpn - this can be seen sometimes with vincristine 01/18/17 13:26 01/18/17 13:29 01/19/17 11:42 01/19/17 11:46 Subjective: Fairly miserable, withdrawn Objective: Vital Signs Temp Pulse Resp BP Pulse Ox 96.9 F 76 16 136/80 H 91 L 01/19/17 04:44 01/19/17 04:44 01/19/17 04:44 01/19/17 04:44 01/19/17 04:44 Microbiology 01/18/17 11:50 - Final Sputum, Expectorated Laboratory Results 01/19/17 04:00 01/19/17 04:00 01/18/17 01/19/17 01/20/17 05:59 05:59 05:59 Intake Total 1150 930 150 Output Total 760 925 50 Balance 390 5 100 PT 14.1 SEC (12.0-15.0) 01/13/17 17:05 INR 1.10 (0.83-1.16) 01/13/17 17:05 Physical Exam - Physical Exam General Appearance: moderate distress Respiratory: normal breath sounds Abdomen: normal bowel sounds, non-tender ICD10 Worksheet Patient Problems: Problems Problem Status Onset Chronic hyponatremia Acute Dehydration Acute Failure to thrive Acute Mediastinal adenopathy Acute
[2017-01-19 13:44] LABS: INR 1.15 (0.83-1.16); PROTIME(PATIENT) 14.6 SEC (12.0-15.0)
[2017-01-19 13:45] LABS: APTT 32.6 SEC (23.0-38.0)
[2017-01-19] MEDS ORDERED: LIDOCAINE 2% JELLY 5 ML TUBE TP PRN (14:15)
[2017-01-19] MEDS: NS 1,000 ML IV SCH ×2 (14:25→22:10)
[2017-01-19] MEDS: FILGRASTIM-SNDZ 300 MCG/0.5 ML SYR SC SCH (16:00)
[2017-01-19] MEDS: TPN W/ FAMOTIDINE 1 EA BAG IV SCH (22:10)
[2017-01-20 06:24] LABS: ADD DIFF? YES; ADD MORPH? NO; ADD SCAN? YES; ATYPICAL LYMPHOCYTE FLAG 0 (0-99); FRAGMENT RBC FLAG 0 (0-99); HEMATOCRIT 29.6 % (40.0-51.0); HEMOGLOBIN 9.8 g/dL (13.7-17.5); LIPEMIA HEMOLYSIS FLAG 80 (0-99); MEAN CELL HEMOGLOBIN 27.1 pg (27.9-34.1); MEAN CELL HEMOGLOBIN CONCENTR. 33.1 g/dL (32.4-36.7); MEAN CELL VOLUME 81.8 fL (81.5-99.8); MEAN PLATELET VOLUME 8.2 fL (8.7-11.7); PLATELET CLUMPS FLAG 0 (0-99); PLATELET COUNT 215 10^3/uL (150-400); RED BLOOD CELL COUNT 3.62 10^6/uL (4.40-6.38); RED CELL DISTRIBUTION WIDTH 17.5 % (11.5-15.2)
[2017-01-20 06:29] LABS: LEFT SHIFT FLG 180 (0-99)
[2017-01-20 06:37] LABS: INR 1.09 (0.83-1.16)
[2017-01-20 06:38] LABS: APTT 35.9 SEC (23.0-38.0)
[2017-01-20 06:42] LABS: ALANINE AMINOTRANSFERASE 97 IU/L (21-72); ALBUMIN 2.4 g/dL (3.5-5.0); ALKALINE PHOSPHATASE 465 IU/L (38-126); ANION GAP 8 mEq/L (8-16); ASPARTATE AMINOTRANSFERASE 60 IU/L (17-59); BILIRUBIN,TOTAL 0.7 mg/dL (0.1-1.4); CALCIUM 8.3 mg/dL (8.5-10.4); CARBON DIOXIDE 27 mEq/l (22-31); CHLORIDE 106 mEq/L (97-110); CREATININE 0.5 mg/dL (0.7-1.3); GLOMERULAR FILTRATION RATE > 60; GLUCOSE 182 mg/dL (70-100); MAGNESIUM 2.1 mg/dL (1.6-2.3); POTASSIUM 2.9 mEq/L (3.5-5.2); SODIUM 141 mEq/L (134-144); URIC ACID 1.9 mg/dL (3.5-8.5)
[2017-01-20 07:09] LABS: PLATELET ESTIMATE ADEQUATE (ADEQ); TOXIC GRANULATION PRESENT; TOXIC VACUOLIZATION PRESENT
[2017-01-20 07:11] LABS: MICROCYTES 1+
[2017-01-20] MEDS: ENOXAPARIN 40 MG/0.4 ML SYR SC SCH (08:39)
--- NOTE | 2017-01-20 09:17 | HOSPPROG ---
Hospitalist Progress Note Assessment/Plan: 66-year-old man admitted with weakness, underwent CT-guided biopsy of mediastinal mass found to have diffuse large B-cell lymphoma. S/p R-CHOP. Course complicated by ileus and significant depression. Currently with NG tube , getting TPN. # ileus - d/t chemo? BS present today - NG tube in place - TPN - check AXR tomorrow # DLBCL, new dx, s/p R-chop - allopurinol # hypothermic reaction to rituxan - resolved # leukocytosis - s/p granix; better today # hyponatremia/hypernatremia - resolved # small pneumothorax - informally discussed with Dr. Mars; follow clinically and radiographically # severe protein calorie malnutrition - TPN # cough - CXR clear, follow sputum cx (nothing definitive currently) # acute encephalopathy - seems related to depression # depression # anemia d/t malignancy # deconditioning - PT ## CXR personally reviewed from today high risk Subjective: still very depressed; abd feels aslightly better; NR tube is irritating Objective: Vital Signs Temp Pulse Resp BP Pulse Ox 35.8 C L 83 16 138/86 H 93 01/20/17 08:00 01/20/17 08:00 01/20/17 08:00 01/20/17 08:00 01/20/17 08:00 Microbiology 01/18/17 11:50 - Final Sputum, Expectorated Laboratory Results 01/20/17 06:15 01/20/17 06:15 01/19/17 01/20/17 01/21/17 05:59 05:59 05:59 Intake Total 930 1398 Output Total 925 2875 150 Balance 5 -1477 -150 PT 14.0 SEC (12.0-15.0) 01/20/17 06:15 INR 1.09 (0.83-1.16) 01/20/17 06:15 - Physical Exam Constitutional: uncomfortable, unkempt Ears, Nose, Mouth, Throat: other (NG tube) Cardiovascular: regular rate and rhythym, no murmur, rub, or gallop Respiratory: no respiratory distress, no rales or rhonchi, clear to auscultation Gastrointestinal: normoactive bowel sounds, soft, non-tender abdomen, no palpable masses ICD10 Worksheet Patient Problems: Problems Problem Status Onset Chronic hyponatremia Acute Mediastinal adenopathy Acute Dehydration Acute Failure to thrive Acute
[2017-01-20] MEDS: ALLOPURINOL 300 MG TAB PO SCH (10:10)
--- NOTE | 2017-01-20 10:48 | SOAPPROG ---
SOAP Progress Note Assessment/Plan: Assessment: Assessment: 1. DLBCL, stage IVB (extensive bony involvement), non-GCB. myc and bcl2 pending 2. SIADH, improved 3. Malnutrition 4. Rituximab infusion reaction (hypothermia) - infusion complete, symptoms have now resolved. 5. cough without fever, cxr pending 6. acute onset emesis, ct scan shows ileus, more comfortable with ng drainage Plan: - Continue allopurinol, may stop over the next few days - Prachirxio to continue - Continue TPN, ng drainage 01/18/17 13:26 01/18/17 13:29 01/19/17 11:42 01/19/17 11:46 01/20/17 10:45 Subjective: Looks a bit better Objective: Vital Signs Temp Pulse Resp BP Pulse Ox 96.4 F L 83 16 138/86 H 93 01/20/17 08:00 01/20/17 08:00 01/20/17 08:00 01/20/17 08:00 01/20/17 08:00 Microbiology 01/18/17 11:50 - Final Sputum, Expectorated Laboratory Results 01/20/17 06:15 01/20/17 06:15 01/19/17 01/20/17 01/21/17 05:59 05:59 05:59 Intake Total 930 1398 Output Total 925 2875 150 Balance 5 -1477 -150 PT 14.0 SEC (12.0-15.0) 01/20/17 06:15 INR 1.09 (0.83-1.16) 01/20/17 06:15 Physical Exam - Physical Exam General Appearance: mild distress Respiratory: decreased breath sounds Cardiac/Chest: regular rate, rhythm (few bs, sl distended) ICD10 Worksheet Patient Problems: Problems Problem Status Onset Chronic hyponatremia Acute Dehydration Acute Failure to thrive Acute Mediastinal adenopathy Acute
[2017-01-20] MEDS: POTASSIUM Cl (KCl) 100 ML IV SCH ×4 (10:59→16:30)
[2017-01-20] MEDS ORDERED: D50W 25 GM/50 ML SYR IVP PRN (13:37)
[2017-01-20] MEDS ORDERED: PARAMETERS MISC PRN (13:37)
[2017-01-20] MEDS: FILGRASTIM-SNDZ 300 MCG/0.5 ML SYR SC SCH (15:12)
[2017-01-20 17:20] LABS: HEMATOCRIT 29.1 % (40.0-51.0); HEMOGLOBIN 9.4 g/dL (13.7-17.5)
[2017-01-20] MEDS: INSULIN REGULAR, HUMAN 100 UNIT/1 ML VIAL STANDARD SC SCH ×2 (17:32→17:33)
[2017-01-20] MEDS: PANTOPRAZOLE SODIUM 40 MG in NS 100 ML IV SCH (20:23)
[2017-01-20] MEDS: TPN W/ FAMOTIDINE 1 EA BAG IV SCH (20:23)
[2017-01-21] MEDS: INSULIN REGULAR, HUMAN 100 UNIT/1 ML VIAL STANDARD SC SCH ×5 (01:50→22:48)
[2017-01-21] MEDS: NS 1,000 ML IV SCH ×2 (01:51→19:52)
[2017-01-21 04:59] LABS: ADD DIFF? YES; ADD MORPH? NO; ATYPICAL LYMPHOCYTE FLAG 0 (0-99); FRAGMENT RBC FLAG 0 (0-99); HEMATOCRIT 31.8 % (40.0-51.0); HEMOGLOBIN 10.3 g/dL (13.7-17.5); LIPEMIA HEMOLYSIS FLAG 80 (0-99); MEAN CELL HEMOGLOBIN 26.6 pg (27.9-34.1); MEAN CELL HEMOGLOBIN CONCENTR. 32.4 g/dL (32.4-36.7); MEAN CELL VOLUME 82.2 fL (81.5-99.8); MEAN PLATELET VOLUME 8.2 fL (8.7-11.7); PLATELET CLUMPS FLAG 0 (0-99); PLATELET COUNT 193 10^3/uL (150-400); RED BLOOD CELL COUNT 3.87 10^6/uL (4.40-6.38); RED CELL DISTRIBUTION WIDTH 17.1 % (11.5-15.2)
[2017-01-21 05:05] LABS: INR 0.99 (0.83-1.16)
[2017-01-21 05:06] LABS: APTT 34.1 SEC (23.0-38.0)
[2017-01-21 05:10] LABS: ADD SCAN? NO; LEFT SHIFT FLG 180 (0-99)
[2017-01-21 05:15] LABS: ALANINE AMINOTRANSFERASE 94 IU/L (21-72); ALBUMIN 2.5 g/dL (3.5-5.0); ALKALINE PHOSPHATASE 441 IU/L (38-126); ANION GAP 5 mEq/L (8-16); ASPARTATE AMINOTRANSFERASE 53 IU/L (17-59); BILIRUBIN,TOTAL 0.8 mg/dL (0.1-1.4); CALCIUM 8.7 mg/dL (8.5-10.4); CARBON DIOXIDE 30 mEq/l (22-31); CHLORIDE 101 mEq/L (97-110); CREATININE 0.4 mg/dL (0.7-1.3); GLOMERULAR FILTRATION RATE > 60; GLUCOSE 106 mg/dL (70-100); POTASSIUM 3.6 mEq/L (3.5-5.2); SODIUM 136 mEq/L (134-144); TOTAL PROTEIN 5.6 g/dL (6.3-8.2)
[2017-01-21 06:18] LABS: LARGE PLATELETS PRESENT; MICROCYTES 1+; PLATELET ESTIMATE ADEQUATE (ADEQ); TOXIC VACUOLIZATION PRESENT
[2017-01-21 06:21] LABS: TOXIC GRANULATION PRESENT
[2017-01-21] MEDS: ALLOPURINOL 300 MG TAB PO SCH (09:21)
[2017-01-21] MEDS: ENOXAPARIN 40 MG/0.4 ML SYR SC SCH (09:21)
--- NOTE | 2017-01-21 10:18 | SOAPPROG ---
SOAP Progress Note Assessment/Plan: Assessment: Assessment: 1. DLBCL, stage IVB (extensive bony involvement), non-GCB. myc and bcl2 pending , s/p r chop 01/15 2. SIADH, improved 3. Malnutrition 4. Rituximab infusion reaction (hypothermia) - infusion complete, symptoms have now resolved. 5. cough without fever, cxr pending 6. acute onset emesis, ct scan shows ileus, more comfortable with ng drainage. Abdominal film shows non specific gas pattern Plan: - Stop allopurinol, - Zarxio to continue for 7 days - Continue TPN, ng now clamped Subjective: Feels and looks better today Objective: Vital Signs Temp Pulse Resp BP Pulse Ox 96.6 F L 98 18 147/88 H 93 01/21/17 04:00 01/21/17 04:00 01/21/17 04:00 01/21/17 04:00 01/21/17 04:00 Microbiology 01/16/17 00:55 Blood Culture - Final Blood 01/16/17 00:44 Blood Culture - Final Blood 01/18/17 11:50 - Final Sputum, Expectorated Laboratory Results 01/21/17 04:40 01/21/17 04:40 01/20/17 01/21/17 01/22/17 05:59 05:59 05:59 Intake Total 1398 4316 Output Total 2875 949 Balance -1477 3367 PT 13.0 SEC (12.0-15.0) 01/21/17 04:40 INR 0.99 (0.83-1.16) 01/21/17 04:40 Physical Exam - Physical Exam General Appearance: mild distress Respiratory: lungs clear Cardiac/Chest: regular rate, rhythm (positive BS, scaphoid) ICD10 Worksheet Patient Problems: Problems Problem Status Onset Chronic hyponatremia Acute Dehydration Acute Failure to thrive Acute Mediastinal adenopathy Acute
[2017-01-21] MEDS: PANTOPRAZOLE SODIUM 40 MG in NS 100 ML IV SCH ×2 (11:21→19:52)
--- NOTE | 2017-01-21 11:32 | HOSPPROG ---
Hospitalist Progress Note Assessment/Plan: #DLBCL: s/p R-CHOP. Zarxio #Ileus/SBO: no N/V. NG clamped. Phos/K okay #Severe protein caloric malnutrition: TPN #Hypokalemia: resolved #SIADH: resolved #Hypothermic reaction to rituxan #Depression: not currently treated #HCAP: LLL PNA. Levaquin, Day 3 #Small PTX: resolved (personally reviewed CXR 01/19) #DVT ppx: Lovenox Patient is new to my care today; I reviewed prior notes, labs and imaging Objective: Vital Signs Temp Pulse Resp BP Pulse Ox 35.9 C L 98 18 147/88 H 93 01/21/17 04:00 01/21/17 04:00 01/21/17 04:00 01/21/17 04:00 01/21/17 04:00 Microbiology 01/16/17 00:55 Blood Culture - Final Blood 01/16/17 00:44 Blood Culture - Final Blood 01/18/17 11:50 - Final Sputum, Expectorated Laboratory Results 01/21/17 04:40 01/21/17 04:40 01/20/17 01/21/17 01/22/17 05:59 05:59 05:59 Intake Total 1398 4316 Output Total 2875 949 Balance -1477 3367 PT 13.0 SEC (12.0-15.0) 01/21/17 04:40 INR 0.99 (0.83-1.16) 01/21/17 04:40 - Physical Exam Constitutional: cachectic Eyes: PERRL Ears, Nose, Mouth, Throat: moist mucous membranes, other (NG in place) Cardiovascular: regular rate and rhythym Respiratory: no respiratory distress Gastrointestinal: normoactive bowel sounds, soft, non-tender abdomen Genitourinary: no bladder fullness Skin: warm Musculoskeletal: full muscle strength Neurologic: AAOx3 Psychiatric: depressed (minimal answers to my questions), flat affect ICD10 Worksheet Patient Problems: Problems Problem Status Onset Chronic hyponatremia Acute Dehydration Acute Failure to thrive Acute Mediastinal adenopathy Acute
[2017-01-21] MEDS: POTASSIUM Cl (KCl) 100 ML IV SCH (13:36)
[2017-01-21] MEDS: FILGRASTIM-SNDZ 300 MCG/0.5 ML SYR SC SCH (15:18)
[2017-01-21] MEDS: TPN W/ FAMOTIDINE 1 EA BAG IV SCH (19:52)
[2017-01-22 04:07] LABS: ANION GAP 6 mEq/L (8-16); CALCIUM 8.5 mg/dL (8.5-10.4); CARBON DIOXIDE 29 mEq/l (22-31); CHLORIDE 99 mEq/L (97-110); CREATININE 0.5 mg/dL (0.7-1.3); GLOMERULAR FILTRATION RATE > 60; GLUCOSE 190 mg/dL (70-100); MAGNESIUM 2.3 mg/dL (1.6-2.3); POTASSIUM 4.4 mEq/L (3.5-5.2); SODIUM 134 mEq/L (134-144)
[2017-01-22] MEDS: INSULIN REGULAR, HUMAN 100 UNIT/1 ML VIAL STANDARD SC SCH (05:57)
--- NOTE | 2017-01-22 08:30 | HOSPPROG ---
Hospitalist Progress Note Assessment/Plan: #DLBCL: s/p R-CHOP. Zarxio Plan for repeat in 3 weeks #Hypoactive delirium: he does not recall pulling PICC. Waxing/waning. Trial low- dose anti-psychotic -check TSH, B12, UA for reversible causes #Ileus/SBO: trial clears today. #Severe protein caloric malnutrition: holding TPN today since february pull PICC. Start IVFs #Hypokalemia: resolved #SIADH: resolved #Hypothermic reaction to rituxan #Depression: start Remeron #HCAP: LLL PNA. Levaquin, Day 3 #Small PTX: still with small apical PTX. Serial CXR, place on oxygen #DVT ppx: Lovenox #Goals: long conversation with daughter and ex- about overall goals and importance of establishing MDPOA Subjective: He pulled PICC out this morning, but does not recall it. Passing flatus Objective: Vital Signs Temp Pulse Resp BP Pulse Ox 36.3 C 96 16 121/78 H 95 01/22/17 07:55 01/22/17 07:55 01/22/17 07:55 01/22/17 07:55 01/22/17 07:55 Microbiology 01/18/17 11:50 - Final Sputum, Expectorated Sputum Culture - Final Yeast, Not Mallory Albicans 01/16/17 00:55 Blood Culture - Final Blood 01/16/17 00:44 Blood Culture - Final Blood Laboratory Results 01/21/17 04:40 01/22/17 03:35 01/21/17 01/22/17 01/23/17 05:59 05:59 05:59 Intake Total 4316 2737 Output Total 949 1326 Balance 3367 1411 PT 13.0 SEC (12.0-15.0) 01/21/17 04:40 INR 0.99 (0.83-1.16) 01/21/17 04:40 - Physical Exam Constitutional: chronically ill appearing, cachectic Eyes: PERRL Ears, Nose, Mouth, Throat: moist mucous membranes, other (NG tube) Cardiovascular: regular rate and rhythym Respiratory: no respiratory distress, no rales or rhonchi Gastrointestinal: normoactive bowel sounds, soft, non-tender abdomen Genitourinary: no bladder fullness Skin: warm Musculoskeletal: full muscle strength Neurologic: other (alert to year, place, month. Not date) Psychiatric: depressed, flat affect ICD10 Worksheet Patient Problems: Problems Problem Status Onset Chronic hyponatremia Acute Dehydration Acute Failure to thrive Acute Mediastinal adenopathy Acute
[2017-01-22] MEDS ORDERED: D5W NS 1,000 ML IV SCH (10:00)
[2017-01-22] MEDS: PANTOPRAZOLE SODIUM 40 MG in NS 100 ML IV SCH ×2 (10:43→20:36)
[2017-01-22] MEDS: ENOXAPARIN 40 MG/0.4 ML SYR SC SCH (10:46)
--- NOTE | 2017-01-22 11:14 | SOAPPROG ---
SOAP Progress Note Assessment/Plan: Assessment: Assessment: 1. DLBCL, stage IVB (extensive bony involvement), non-GCB. myc and bcl2 pending , s/p r chop 01/15 2. SIADH, improved 3. Malnutrition 4. Rituximab infusion reaction (hypothermia) - infusion complete, symptoms have now resolved. 5. cough without fever, cxr pending 6. acute onset emesis, ct scan shows ileus, more comfortable with ng drainage. Abdominal film shows non specific gas pattern Plan: - Zarxio to continue for 7 days - he pulled pic line, we are going to try clears today and consider pulling ng tube if tolerated, agree with trial Remeron 01/22/17 11:11 01/22/17 11:12 Subjective: Feels ok Objective: Vital Signs Temp Pulse Resp BP Pulse Ox 97.3 F 96 16 121/78 H 95 01/22/17 07:55 01/22/17 07:55 01/22/17 07:55 01/22/17 07:55 01/22/17 07:55 Microbiology 01/18/17 11:50 - Final Sputum, Expectorated Sputum Culture - Final Yeast, Not Mallory Albicans 01/16/17 00:55 Blood Culture - Final Blood 01/16/17 00:44 Blood Culture - Final Blood Laboratory Results 01/21/17 04:40 01/22/17 03:35 01/21/17 01/22/17 01/23/17 05:59 05:59 05:59 Intake Total 4316 2737 Output Total 949 1326 Balance 3367 1411 PT 13.0 SEC (12.0-15.0) 01/21/17 04:40 INR 0.99 (0.83-1.16) 01/21/17 04:40 Physical Exam - Physical Exam General Appearance: alert, other Respiratory: decreased breath sounds Cardiac/Chest: regular rate, rhythm Abdomen: normal bowel sounds, non-tender (Flat affect) ICD10 Worksheet Patient Problems: Problems Problem Status Onset Chronic hyponatremia Acute Dehydration Acute Failure to thrive Acute Mediastinal adenopathy Acute
[2017-01-22] MEDS: FILGRASTIM-SNDZ 300 MCG/0.5 ML SYR SC SCH (16:43)
[2017-01-22] MEDS: MIRTAZAPINE 15 MG TAB PO SCH (20:36)
[2017-01-23 07:14] LABS: COLOR YELLOW; LEUKOCYTE ESTERASE,URINE NEGATIVE (NEGATIVE); NITRITE,URINE NEGATIVE (NEGATIVE)
[2017-01-23] MEDS: PANTOPRAZOLE SODIUM 40 MG in NS 100 ML IV SCH ×2 (09:40→21:16)
[2017-01-23] MEDS: ENOXAPARIN 40 MG/0.4 ML SYR SC SCH (09:41)
--- NOTE | 2017-01-23 09:50 | HOSPPROG ---
Hospitalist Progress Note Assessment/Plan: #DLBCL: s/p R-CHOP. Zarxio Plan for repeat in 3 weeks #Hypo/hyperactive delirium: waxing/waning. Brain MRI normal. TSH, B12, UA WNL. Cognitive evaluation pending. Zyprexa PRN #Ileus/SBO: pulled NG 01/22. Tolerating clears, passing flatus. Advance diet slowly #Severe protein caloric malnutrition: holding TPN today since february pull PICC. Start IVFs #Hypokalemia: resolved #SIADH: resolved #Hypothermic reaction to rituxan #Depression: started Remeron #HCAP: LLL PNA. Complete 5 days LQ today #Small PTX: minimal oxygen needs. Repeat CXR in morning #DVT ppx: Lovenox #Goals: long conversation with daughter and ex- about overall goals and obtaining MDPOA Subjective: no N/V. Passing flatus. Tolerated jello Objective: Vital Signs Temp Pulse Resp BP Pulse Ox 36.4 C 97 16 117/71 99 01/23/17 08:55 01/23/17 08:55 01/23/17 08:55 01/23/17 08:55 01/23/17 08:55 Laboratory Results 01/21/17 04:40 01/22/17 03:35 01/22/17 01/23/17 01/24/17 05:59 05:59 05:59 Intake Total 2737 1009 Output Total 1326 1175 Balance 1411 -166 PT 13.0 SEC (12.0-15.0) 01/21/17 04:40 INR 0.99 (0.83-1.16) 01/21/17 04:40 - Physical Exam Constitutional: chronically ill appearing Eyes: PERRL Ears, Nose, Mouth, Throat: moist mucous membranes Cardiovascular: regular rate and rhythym, no murmur, rub, or gallop Respiratory: no respiratory distress, no rales or rhonchi Gastrointestinal: normoactive bowel sounds, soft, non-tender abdomen Genitourinary: no bladder fullness Skin: warm Musculoskeletal: other (ambulating with PT without walker) Neurologic: AAOx3, CN II-XII Intact Psychiatric: depressed, flat affect ICD10 Worksheet Patient Problems: Problems Problem Status Onset Chronic hyponatremia Acute Dehydration Acute Failure to thrive Acute Mediastinal adenopathy Acute
[2017-01-23] MEDS ORDERED: OLANZapine DISINTEGR 5 MG TAB PO PRN (09:54)
--- NOTE | 2017-01-23 12:36 | SOAPPROG ---
SOAP Progress Note Assessment/Plan: Assessment/Plan: 66 yo gentleman w Stage IVB DLBCL (extensive bony involvement), non-GCB, myc and bcl-2 pending s/p RCHOP 01/15 1. DLBCL - slow to recover cognition/delrium have been an issue ?depression endocrine labs, MRI, etc unrevealing Growth factor x 7 days total CBC ok today Had Rituxan infusion reaction 2. SIADH - improved 3. Malnutrition 4. Ileus - ?from vincristine; was on TPN but pulled PICC 01/23/17 12:33 Subjective: In shower Able to answer all questions today Denies pain Objective: Vital Signs Temp Pulse Resp BP Pulse Ox 36.4 C 97 16 117/71 99 01/23/17 08:55 01/23/17 08:55 01/23/17 08:55 01/23/17 08:55 01/23/17 08:55 Laboratory Results 01/21/17 04:40 01/22/17 03:35 01/22/17 01/23/17 01/24/17 05:59 05:59 05:59 Intake Total 2737 1009 Output Total 1326 1175 Balance 1411 -166 PT 13.0 SEC (12.0-15.0) 01/21/17 04:40 INR 0.99 (0.83-1.16) 01/21/17 04:40 Vitals reviewed Gen - chronically ill appearing, cachectic CV - RRR Chest - CTAB Abd - no BS appreciated, mild distention Neuro - A&O x 4 skin - no lesions ICD10 Worksheet Patient Problems: Problems Problem Status Onset Chronic hyponatremia Acute Dehydration Acute Failure to thrive Acute Mediastinal adenopathy Acute
[2017-01-23] MEDS: FILGRASTIM-SNDZ 300 MCG/0.5 ML SYR SC SCH (15:54)
[2017-01-23] MEDS: MIRTAZAPINE 15 MG TAB PO SCH (21:16)
[2017-01-24 05:31] LABS: ANION GAP 5 mEq/L (8-16); CALCIUM 8.4 mg/dL (8.5-10.4); CARBON DIOXIDE 28 mEq/l (22-31); CHLORIDE 97 mEq/L (97-110); CREATININE 0.5 mg/dL (0.7-1.3); GLOMERULAR FILTRATION RATE > 60; GLUCOSE 122 mg/dL (70-100); POTASSIUM 3.2 mEq/L (3.5-5.2); SODIUM 130 mEq/L (134-144)
[2017-01-24] MEDS: PANTOPRAZOLE SODIUM 40 MG in NS 100 ML IV SCH ×2 (08:58→20:15)
[2017-01-24] MEDS: ENOXAPARIN 40 MG/0.4 ML SYR SC SCH (08:58)
--- NOTE | 2017-01-24 10:05 | HOSPPROG ---
Hospitalist Progress Note Assessment/Plan: #DLBCL: s/p R-CHOP. Zarxio Plan for repeat in 3 weeks #Hyponatremia: severe at admission due to SIADH. Down today to 130; suspect dry since off TPN and not taking in much PO. Change to NS and repeat BMP; if dropping, will fluid restrict. #Hypo/hyperactive delirium: improved mental status today. waxing/waning. Brain MRI normal. TSH, B12, UA WNL. Cognitive evaluation with moderate impairment. Zyprexa PRN #Ileus/SBO: Tolerating clears, passing flatus. Repeat Xray today (personally reviewed by me) without ileus. Advance diet slowly #Severe protein caloric malnutrition: encourage PO. Was on TPN #Hypokalemia: min PO intake. Repleting #Hypothermic reaction to rituxan #Depression: started Remeron #HCAP: LLL PNA. Complete 5 days LQ #Small PTX: CXR (personally reviewed by me). PTX resolved #DVT ppx: Lovenox #Goals: long conversation with daughter and ex- about overall goals and obtaining MDPOA Subjective: no nausea. Feeling "more energy" Objective: Vital Signs Temp Pulse Resp BP Pulse Ox 36.7 C 107 H 16 115/70 95 01/24/17 08:00 01/24/17 08:00 01/24/17 08:00 01/24/17 08:00 01/24/17 08:00 Laboratory Results 01/21/17 04:40 01/24/17 04:55 01/23/17 01/24/17 01/25/17 05:59 05:59 05:59 Intake Total 1009 1885 Output Total 1175 1400 Balance -166 485 PT 13.0 SEC (12.0-15.0) 01/21/17 04:40 INR 0.99 (0.83-1.16) 01/21/17 04:40 - Physical Exam Constitutional: chronically ill appearing, cachectic Eyes: PERRL Ears, Nose, Mouth, Throat: dry mucous membranes Cardiovascular: regular rate and rhythym, no murmur, rub, or gallop Respiratory: no respiratory distress, no rales or rhonchi Gastrointestinal: normoactive bowel sounds, soft, non-tender abdomen, no palpable masses Skin: warm Neurologic: AAOx3, CN II-XII Intact Psychiatric: other (appears brighter today, but still flat) ICD10 Worksheet Patient Problems: Problems Problem Status Onset Chronic hyponatremia Acute Dehydration Acute Failure to thrive Acute Mediastinal adenopathy Acute
[2017-01-24] MEDS ORDERED: PROTOCOL POTASSIUM 1 DOSE MISC PRN (10:57)
[2017-01-24] MEDS ORDERED: POTASSIUM CL 20 MEQ/15 ML UDCUP PO SCH (11:00)
[2017-01-24] MEDS: NS 1,000 ML IV SCH ×2 (11:04→20:15)
--- NOTE | 2017-01-24 12:24 | SOAPPROG ---
SOAP Progress Note Assessment/Plan: Assessment/Plan: 66 yo gentleman w Stage IVB DLBCL (extensive bony involvement), non-GCB, myc and bcl-2 pending s/p RCHOP 01/15 1. DLBCL - slow to recover cognition/delrium have been an issue but markedly improved on my exam today ( full workup was unrevealing ?depression) completed filgrastim CBC pending today Had Rituxan infusion reaction 2. SIADH - had improved but Na down today; agree pt on dry side - getting NS and will recheck BMP 3. Malnutrition 4. Ileus - ?from vincristine; was on TPN but pulled PICC; taking po and doing well 01/23/17 12:33 01/24/17 12:21 01/24/17 12:22 Subjective: No acute events Reports feeling better Family at bedside Objective: Vital Signs Temp Pulse Resp BP Pulse Ox 36.7 C 107 H 16 115/70 95 01/24/17 08:00 01/24/17 08:00 01/24/17 08:00 01/24/17 08:00 01/24/17 08:00 Laboratory Results 01/21/17 04:40 01/24/17 04:55 01/23/17 01/24/17 01/25/17 05:59 05:59 05:59 Intake Total 1009 1885 Output Total 1175 1400 Balance -166 485 PT 13.0 SEC (12.0-15.0) 01/21/17 04:40 INR 0.99 (0.83-1.16) 01/21/17 04:40 Gen - cachectic, NAD HEENT - anicteric CV - RRR Chest - CTA Abd - soft Ext - thin, no edema ICD10 Worksheet Patient Problems: Problems Problem Status Onset Chronic hyponatremia Acute Dehydration Acute Failure to thrive Acute Mediastinal adenopathy Acute
[2017-01-24 14:39] LABS: ADD DIFF? YES; ADD MORPH? NO; ATYPICAL LYMPHOCYTE FLAG 0 (0-99); FRAGMENT RBC FLAG 0 (0-99); HEMATOCRIT 27.1 % (40.0-51.0); HEMOGLOBIN 8.8 g/dL (13.7-17.5); LIPEMIA HEMOLYSIS FLAG 80 (0-99); MEAN CELL HEMOGLOBIN 26.6 pg (27.9-34.1); MEAN CELL HEMOGLOBIN CONCENTR. 32.5 g/dL (32.4-36.7); MEAN CELL VOLUME 81.9 fL (81.5-99.8); MEAN PLATELET VOLUME 8.9 fL (8.7-11.7); PLATELET CLUMPS FLAG 10 (0-99); PLATELET COUNT 87 10^3/uL (150-400); RED BLOOD CELL COUNT 3.31 10^6/uL (4.40-6.38)
[2017-01-24 14:44] LABS: ANION GAP 8 mEq/L (8-16); CALCIUM 8.1 mg/dL (8.5-10.4); CARBON DIOXIDE 24 mEq/l (22-31); CHLORIDE 98 mEq/L (97-110); CREATININE 0.5 mg/dL (0.7-1.3); GLOMERULAR FILTRATION RATE > 60; GLUCOSE 245 mg/dL (70-100); POTASSIUM 3.4 mEq/L (3.5-5.2); SODIUM 130 mEq/L (134-144)
[2017-01-24] MEDS ORDERED: POTASSIUM CL 10 MEQ TAB PO ONE (14:54)
[2017-01-24 16:43] LABS: HYPOCHROMIA 1+; MICROCYTES 1+; PLATELET ESTIMATE DECREASED (ADEQ)
[2017-01-24 16:44] LABS: TOXIC GRANULATION PRESENT
[2017-01-24 16:46] LABS: RED CELL DISTRIBUTION WIDTH 16.2 % (11.5-15.2)
[2017-01-24 18:28] LABS: ADD SCAN? NO
[2017-01-24] MEDS: MIRTAZAPINE 15 MG TAB PO SCH (20:15)
[2017-01-25 04:34] LABS: HEMOGLOBIN 8.6 g/dL (13.7-17.5); MEAN CELL HEMOGLOBIN 26.5 pg (27.9-34.1); MEAN CELL HEMOGLOBIN CONCENTR. 33.1 g/dL (32.4-36.7); RED BLOOD CELL COUNT 3.25 10^6/uL (4.40-6.38); RED CELL DISTRIBUTION WIDTH 16.2 % (11.5-15.2)
[2017-01-25 04:44] LABS: ANION GAP 3 mEq/L (8-16); CARBON DIOXIDE 29 mEq/l (22-31); CHLORIDE 98 mEq/L (97-110); CREATININE 0.5 mg/dL (0.7-1.3); GLOMERULAR FILTRATION RATE > 60; GLUCOSE 100 mg/dL (70-100); POTASSIUM 3.9 mEq/L (3.5-5.2); SODIUM 130 mEq/L (134-144); TRIGLYCERIDE 120 mg/dL (40-150)
[2017-01-25] MEDS: ENOXAPARIN 40 MG/0.4 ML SYR SC SCH (09:38)
[2017-01-25] MEDS: PANTOPRAZOLE SODIUM 40 MG in NS 100 ML IV SCH (09:38)
--- NOTE | 2017-01-25 11:33 | HOSPPROG ---
Hospitalist Progress Note Assessment/Plan: 66 yo M pw weight loss and weakness found to have left hilar mass and LAD ultimately worked up and found to be DLBCL now s/p RCHOP # stage 4 DLBCL: new diagnosis, extensive bony involvement, presented with sxs of weight loss and fatigue with LAD, now s/p RCHOP 01/15 with slow recovery # HCAP: on personal review of cxr's there had been a LLL PNA that has now resolved, s/p 5 days of levofloxacin # pancytopenia: related to chemotherapy as above, wbc were initially elevated s/ p granix, continue to trend, no indication for tx at this point # acute encephalopathy: with waxing and waning mental status c/w delerium in setting of prolonged hospitalization, no focal neuro findings, continue to monitor # spcm: with BMI of 15 and continued poor po intake at this point. Will ask dietary to start calorie counts. May need TPN. # hyponatremia: with SIADH as underlying issue, continues to be slightly low, monitoring # ileus: ? 2/2 vincristine, resolved # ptx: occurred s/p bx, personally reviewed most recent cxr without e/o infection # dispo: IP status, dc still unclear, likely will need to go to snf Patient new to my care. Old records reviewed and summarized as above. Further hx obtained from patients family present at bedside. Subjective: patient states he is feeling better, states he is eating but on review with nursing and family he is not eating much, did ambulate with PT and states he felt well Objective: Vital Signs Temp Pulse Resp BP Pulse Ox 36.7 C 98 18 113/71 96 01/25/17 08:00 01/25/17 08:00 01/25/17 08:00 01/25/17 08:00 01/25/17 08:00 Laboratory Results 01/25/17 04:21 01/25/17 04:21 01/24/17 01/25/17 01/26/17 05:59 05:59 05:59 Intake Total 1885 2590 Output Total 1400 Balance 485 2590 PT 13.0 SEC (12.0-15.0) 01/21/17 04:40 INR 0.99 (0.83-1.16) 01/21/17 04:40 awake alert anicteric op clear rrr no mrg cta normal wob soft nt nd no cce warm dry well perfused oriented but cognitively slow and has a hard time answering specific questions ICD10 Worksheet Patient Problems: Problems Problem Status Onset Chronic hyponatremia Acute Mediastinal adenopathy Acute Dehydration Acute Failure to thrive Acute
[2017-01-25] MEDS ORDERED: POTASSIUM CL 10 MEQ TAB PO ONE (12:29)
--- NOTE | 2017-01-25 15:01 | SOAPPROG ---
SOALAN Progress Note Assessment/Plan: Assessment: 66 yo gentleman w Stage IVB DLBCL (extensive bony involvement), non-GCB, myc and bcl-2 pending s/p RCHOP 01/15 1. DLBCL - slow to recover cognition/delrium have been an issue but continues to be improved today completed filgrastim WBC up minimally at 0.22 Had Rituxan infusion reaction 2. SIADH - Na+ stable at 130 today 3. Malnutrition 4. Ileus - ?from vincristine; was on TPN but pulled PICC; taking po and doing well Plan: - continue to monitor CBC - continue to monitor hyponatremia - no transfusions today Subjective: Watching a movie. He is aware of the name of the movie (Avatar). Objective: Vital Signs Temp Pulse Resp BP Pulse Ox 37.3 C 101 H 16 127/74 H 94 01/25/17 12:00 01/25/17 12:00 01/25/17 12:00 01/25/17 12:00 01/25/17 12:00 Laboratory Results 01/25/17 04:21 01/25/17 04:21 01/23/17 01/24/17 01/25/17 23:59 23:59 23:59 Intake Total 2144 1750 1340 Output Total 1100 950 Balance 0868 090 1808 PT 13.0 SEC (12.0-15.0) 01/21/17 04:40 INR 0.99 (0.83-1.16) 01/21/17 04:40 Physical Exam - Physical Exam General Appearance: alert, cachetic Respiratory: rhonchi (scattered) Cardiac/Chest: regular rate, rhythm Abdomen: normal bowel sounds Skin: pallor Neuro/Psych: alert ICD10 Worksheet Patient Problems: Problems Problem Status Onset Chronic hyponatremia Acute Dehydration Acute Failure to thrive Acute Mediastinal adenopathy Acute
[2017-01-25] MEDS: NS 1,000 ML IV SCH (16:40)
[2017-01-25] MEDS: MIRTAZAPINE 15 MG TAB PO SCH (20:52)
[2017-01-25] MEDS: PANTOPRAZOLE SODIUM 40 MG TAB PO SCH (20:52)
[2017-01-26] MEDS: NS 1,000 ML IV SCH ×2 (01:46→17:10)
[2017-01-26 04:46] LABS: ANION GAP 6 mEq/L (8-16); CALCIUM 8.1 mg/dL (8.5-10.4); CARBON DIOXIDE 27 mEq/l (22-31); CHLORIDE 95 mEq/L (97-110); CREATININE 0.5 mg/dL (0.7-1.3); GLOMERULAR FILTRATION RATE > 60; GLUCOSE 116 mg/dL (70-100); POTASSIUM 3.1 mEq/L (3.5-5.2); SODIUM 128 mEq/L (134-144)
[2017-01-26 05:08] LABS: COLOR YELLOW; LEUKOCYTE ESTERASE,URINE NEGATIVE (NEGATIVE); NITRITE,URINE NEGATIVE (NEGATIVE)
[2017-01-26 05:19] LABS: MUCUS TRACE /lpf (NONE-1+)
[2017-01-26 05:32] LABS: HEMATOCRIT 25.4 % (40.0-51.0); HEMOGLOBIN 8.4 g/dL (13.7-17.5); MEAN CELL HEMOGLOBIN 26.3 pg (27.9-34.1); MEAN CELL HEMOGLOBIN CONCENTR. 33.1 g/dL (32.4-36.7); MEAN CELL VOLUME 79.6 fL (81.5-99.8); RED BLOOD CELL COUNT 3.19 10^6/uL (4.40-6.38); RED CELL DISTRIBUTION WIDTH 15.7 % (11.5-15.2)
[2017-01-26] MEDS: ENOXAPARIN 40 MG/0.4 ML SYR SC SCH (07:53)
[2017-01-26] MEDS: PANTOPRAZOLE SODIUM 40 MG TAB PO SCH ×2 (09:44→20:35)
[2017-01-26] MEDS ORDERED: POTASSIUM CL 10 MEQ TAB PO ONE (11:11)
--- NOTE | 2017-01-26 11:22 | SOAPPROG ---
SOAP Progress Note Assessment/Plan: Assessment: 66 yo gentleman w Stage IVB DLBCL (extensive bony involvement), non-GCB, myc and bcl-2 pending s/p RCHOP 01/15 1. DLBCL - slow to recover cognition/delrium have been an issue but continues to be improved today. completed filgrastim. WBC up minimally at 0.26. Had Rituxan infusion reaction 2. SIADH - Na+ stable at 128 today 3. Malnutrition 4. Ileus - ?from vincristine; was on TPN but pulled PICC; taking po 5. plts 51k from chemo Plan: - continue to monitor CBC - continue to monitor hyponatremia - no transfusions today - calorie count Subjective: Feels better in general with Paredes in. No other complaints Objective: Vital Signs Temp Pulse Resp BP Pulse Ox 37.0 C 102 H 16 138/64 H 93 01/26/17 08:12 01/26/17 08:12 01/26/17 08:12 01/26/17 08:12 01/26/17 08:12 Laboratory Results 01/26/17 04:10 01/26/17 04:10 01/24/17 01/25/17 01/26/17 23:59 23:59 23:59 Intake Total 1750 3078 1307 Output Total 749 975 1201 Balance 800 2876 182 PT 13.0 SEC (12.0-15.0) 01/21/17 04:40 INR 0.99 (0.83-1.16) 01/21/17 04:40 Physical Exam - Physical Exam General Appearance: cachetic Respiratory: rhonchi (scattered) Cardiac/Chest: regular rate, rhythm Skin: pallor Neuro/Psych: alert ICD10 Worksheet Patient Problems: Problems Problem Status Onset Chronic hyponatremia Acute Dehydration Acute Failure to thrive Acute Mediastinal adenopathy Acute
[2017-01-26] MEDS ORDERED: BISACODYL 10 MG SUPP PR PRN (11:23)
[2017-01-26] MEDS ORDERED: PROTOCOL K PHOSPHATE 1 DOSE IV PRN (11:23)
[2017-01-26] MEDS ORDERED: PROTOCOL MAGNESIUM 1 DOSE IV PRN (11:23)
[2017-01-26] MEDS ORDERED: LACTULOSE 20 GM/30 ML UDCUP PO PRN (11:23)
[2017-01-26] MEDS ORDERED: MAGNESIUM HYDROXIDE 30 ML UDCUP PO PRN (11:23)
[2017-01-26] MEDS ORDERED: POLYETHYLENE GLYCOL 3350 17 GM PKT PO PRN (11:23)
[2017-01-26 12:10] LABS: MAGNESIUM 1.7 mg/dL (1.6-2.3)
--- NOTE | 2017-01-26 12:16 | HOSPPROG ---
Hospitalist Progress Note Assessment/Plan: 66 yo M pw weight loss and weakness found to have left hilar mass and LAD ultimately worked up and found to be DLBCL now s/p RCHOP # stage 4 DLBCL: new diagnosis, extensive bony involvement, presented with sxs of weight loss and fatigue with LAD, now s/p RCHOP 01/15. Plan would be for restaging only after about the second round of chemo. Reviewed care plan at length with his family. # HCAP: on personal review of cxr's there had been a LLL PNA that has now resolved, s/p 5 days of levofloxacin # pancytopenia: related to chemotherapy as above, wbc appears to be increasing slightly, h/h and platelets still trending slightly down, no indication for tx currently # acute urinary retention: aguayo placed with nearly 2L of urine out. Likely multifactorial and related to pain meds, underlying bph, and limited mobility. Started tamusulosin and will continue aguayo for now. # acute encephalopathy: with waxing and waning mental status c/w delerium in setting of prolonged hospitalization, no focal neuro findings, continue to monitor. Today appears much improved, family feels he is back to baseline. # spcm: with BMI of 15 and continued poor po intake at this point. Started calorie counts, will also add marinol to help with appetite. # hyponatremia: with SIADH as underlying issue, has been trending down over last several days again, will check urine sodium/osmols. Continue fluid restriction. Will not add salt tabs at this point given that he is already having a hard time tolerating diet. # ileus: ? 2/2 vincristine, resolved # ptx: occurred s/p bx, personally reviewed most recent cxr without e/o infection # dispo: IP status, dc still unclear, likely will need to go to snf Reviewed care plan with Dr. Stringer as above. >60 minutes spent in face to face counseling of patient and his family from approximately 9:30 am to 10am and again from 11:30 am to 12:15 pm. Discussions regarding goals of care, expectations of treatment and contingency plan if patient remains slow to recover all reviewed. Subjective: no significant overnight events, last night patients ex brought a steak for him to eat, he ate most of it. Today has little appetite again, wonders about marijuana or marinol for help with appetite. Objective: Vital Signs Temp Pulse Resp BP Pulse Ox 37.0 C 102 H 16 138/64 H 93 01/26/17 08:12 01/26/17 08:12 01/26/17 08:12 01/26/17 08:12 01/26/17 08:12 Laboratory Results 01/26/17 04:10 01/26/17 04:10 01/25/17 01/26/17 01/27/17 05:59 05:59 05:59 Intake Total 2590 3045 Output Total 1327 Balance 2590 1718 PT 13.0 SEC (12.0-15.0) 01/21/17 04:40 INR 0.99 (0.83-1.16) 01/21/17 04:40 awake alert cachectic anicteric op clear rrr no mrg cta normal wob soft nt nd no cce warm dry well perfused oriented appropriate ICD10 Worksheet Patient Problems: Problems Problem Status Onset Chronic hyponatremia Acute Dehydration Acute Failure to thrive Acute Mediastinal adenopathy Acute
[2017-01-26] MEDS: DRONABINOL 2.5 MG CAP PO SCH ×2 (15:01→20:35)
[2017-01-26] MEDS: TAMSULOSIN HCL 0.4 MG CAP PO SCH (15:01)
[2017-01-26] MEDS ORDERED: MAGNESIUM SULF 1 GM/DEXTROSE 100 ML IV ONE (16:51)
[2017-01-26] MEDS: MIRTAZAPINE 15 MG TAB PO SCH (20:35)
[2017-01-26] MEDS: SENNOSIDES/DOCUSATE SODIUM TAB PO SCH (20:35)
[2017-01-27] MEDS: NS 1,000 ML IV SCH (03:30)
[2017-01-27 05:34] LABS: ANION GAP 6 mEq/L (8-16); CALCIUM 8.1 mg/dL (8.5-10.4); CARBON DIOXIDE 28 mEq/l (22-31); CHLORIDE 94 mEq/L (97-110); CREATININE 0.6 mg/dL (0.7-1.3); GLOMERULAR FILTRATION RATE > 60; GLUCOSE 111 mg/dL (70-100); MAGNESIUM 1.8 mg/dL (1.6-2.3); POTASSIUM 3.1 mEq/L (3.5-5.2); SODIUM 128 mEq/L (134-144)
[2017-01-27] MEDS ORDERED: POTASSIUM CL 10 MEQ TAB PO ONE ×3 (06:40→21:31)
[2017-01-27 08:29] LABS: ADD MORPH? NO; ATYPICAL LYMPHOCYTE FLAG 0 (0-99); FRAGMENT RBC FLAG 0 (0-99); HEMATOCRIT 21.5 % (40.0-51.0); HEMOGLOBIN 7.3 g/dL (13.7-17.5); LIPEMIA HEMOLYSIS FLAG 90 (0-99); MEAN CELL HEMOGLOBIN 26.8 pg (27.9-34.1); MEAN PLATELET VOLUME 9.1 fL (8.7-11.7); PLATELET CLUMPS FLAG 0 (0-99); PLATELET COUNT 68 10^3/uL (150-400); RED BLOOD CELL COUNT 2.72 10^6/uL (4.40-6.38); RED CELL DISTRIBUTION WIDTH 15.9 % (11.5-15.2)
[2017-01-27 08:30] LABS: LEFT SHIFT FLG 300 (0-99)
[2017-01-27 08:36] LABS: ADD SCAN? NO
[2017-01-27 08:41] LABS: % IMMATURE GRANULYOCYTES 6.8 % (0.0-1.1)
[2017-01-27 08:42] LABS: ABSOLUTE IMMATURE GRANULOCYTES 0.05 10^3/uL (0.00-0.10); ADD DIFF? NO
[2017-01-27] MEDS ORDERED: MAGNESIUM SULF 1 GM/DEXTROSE 100 ML IV ONE (09:23)
[2017-01-27] MEDS: DRONABINOL 2.5 MG CAP PO SCH ×4 (09:27→20:40)
[2017-01-27] MEDS: PANTOPRAZOLE SODIUM 40 MG TAB PO SCH ×3 (09:27→20:40)
[2017-01-27] MEDS: ENOXAPARIN 40 MG/0.4 ML SYR SC SCH (09:27)
[2017-01-27] MEDS: SENNOSIDES/DOCUSATE SODIUM TAB PO SCH ×2 (09:27→20:40)
[2017-01-27] MEDS: TAMSULOSIN HCL 0.4 MG CAP PO SCH (09:27)
--- NOTE | 2017-01-27 15:03 | SOAPPROG ---
ANEUDY Progress Note Assessment/Plan: Assessment: 66 yo gentleman w Stage IVB DLBCL (extensive bony involvement), non-GCB, myc and bcl-2 pending s/p RCHOP 01/15 1. DLBCL - slow to recover cognition/delrium but he seems much clearer today. completed filgrastim. WBC coming up (now 0.7). 2. SIADH - Na+ stable at 128 today 3. Malnutrition 4. Ileus - ?from vincristine; was on TPN but pulled PICC; taking po 5. plts 68k and improving 6. peripheral neuropathy - C/O numbness in R leg 7. anemia - hgb 7.3. May need txn tomorrow Plan: - continue to monitor CBC - continue to monitor hyponatremia - no transfusions today Subjective: Feels much better today. Sitting up. C/O minor numbness R leg. Objective: Vital Signs Temp Pulse Resp BP Pulse Ox 37.6 C 110 H 18 108/56 L 92 01/27/17 11:45 01/27/17 11:45 01/27/17 11:45 01/27/17 11:45 01/27/17 11:45 Laboratory Results 01/27/17 08:17 01/27/17 04:41 01/25/17 01/26/17 01/27/17 23:59 23:59 23:59 Intake Total 3078 2268 1329 Output Total 202 2225 Balance 2876 43 1329 PT 13.0 SEC (12.0-15.0) 01/21/17 04:40 INR 0.99 (0.83-1.16) 01/21/17 04:40 Physical Exam - Physical Exam General Appearance: alert, no apparent distress Skin: pallor ICD10 Worksheet Patient Problems: Problems Problem Status Onset Chronic hyponatremia Acute Dehydration Acute Failure to thrive Acute Mediastinal adenopathy Acute
--- NOTE | 2017-01-27 16:18 | HOSPPROG ---
Hospitalist Progress Note Assessment/Plan: 66 yo M pw weight loss and weakness found to have left hilar mass and LAD ultimately worked up and found to be DLBCL now s/p RCHOP # stage 4 DLBCL: new diagnosis, extensive bony involvement, presented with sxs of weight loss and fatigue with LAD, now s/p RCHOP 01/15. Plan would be for restaging only after about the second round of chemo. # HCAP: on personal review of cxr's there had been a LLL PNA that has now resolved, s/p 5 days of levofloxacin # pancytopenia: related to chemotherapy as above, wbc on the riseslightly, h/h and platelets still trending slightly down, no indication for tx currently # acute urinary retention: sp aguayo, started on tamsulosin # acute encephalopathy: with waxing and waning mental status c/w delerium in setting of prolonged hospitalization, improved # spcm: with BMI of 15 and continued poor po intake at this point. Started calorie counts, will also add marinol to help with appetite. # hyponatremia: with SIADH as underlying issue, has been trending down over last several days again, will check urine sodium/osmols. Continue fluid restriction. Will not add salt tabs at this point given that he is already having a hard time tolerating diet. # ileus: ? 2/2 vincristine, resolved # ptx: occurred s/p bx, personally reviewed most recent cxr without e/o infection # dispo: IP status, dc still unclear, likely will need to go to snf Reviewed care plan with Dr. Stringer as above. Subjective: no significant overnight events, patient currently feeling a bit better, has 2 friends at bedside, ate breakfast, denies pain Objective: Vital Signs Temp Pulse Resp BP Pulse Ox 37.6 C 110 H 18 108/56 L 92 01/27/17 11:45 01/27/17 11:45 01/27/17 11:45 01/27/17 11:45 01/27/17 11:45 Laboratory Results 01/27/17 08:17 01/27/17 04:41 01/26/17 01/27/17 01/28/17 05:59 05:59 05:59 Intake Total 3045 2290 Output Total 1327 1100 Balance 1718 1190 PT 13.0 SEC (12.0-15.0) 01/21/17 04:40 INR 0.99 (0.83-1.16) 01/21/17 04:40 awake alert cachectic anicteric op clear rrr no mrg cta normal wob soft nt nd no cce warm dry well perfused oriented appropriate - Time Spent With Patient Time Spent with Patient: greater than 35 minutes Time Spent with Patient: Greater than 35 minutes spent on this patients care, greater than 50% of time spent counseling, educating, and coordinating care regarding the above mentioned plan. ICD10 Worksheet Patient Problems: Problems Problem Status Onset Chronic hyponatremia Acute Dehydration Acute Failure to thrive Acute Mediastinal adenopathy Acute
[2017-01-27 20:22] LABS: POTASSIUM 2.9 mEq/L (3.5-5.2)
[2017-01-27] MEDS: MIRTAZAPINE 15 MG TAB PO SCH (20:40)
[2017-01-27] MEDS: POTASSIUM Cl (KCl) 100 ML IV SCH (22:22)
[2017-01-28] MEDS: PIPERACILLIN/TAZO 3.375 GM/DEX 50 ML IV SCH ×4 (00:22→18:20)
[2017-01-28] MEDS: POTASSIUM Cl (KCl) 100 ML IV SCH ×3 (00:22→02:05)
[2017-01-28 00:40] LABS: COLOR YELLOW; LEUKOCYTE ESTERASE,URINE NEGATIVE (NEGATIVE); NITRITE,URINE NEGATIVE (NEGATIVE)
[2017-01-28] MEDS: ACETAMINOPHEN 325 MG TAB PO PRN ×2 (01:51→18:27)
[2017-01-28 05:19] LABS: ADD DIFF? YES; ADD MORPH? NO; ATYPICAL LYMPHOCYTE FLAG 0 (0-99); FRAGMENT RBC FLAG 0 (0-99); HEMATOCRIT 20.7 % (40.0-51.0); HEMOGLOBIN 7.1 g/dL (13.7-17.5); LIPEMIA HEMOLYSIS FLAG 90 (0-99); MEAN CELL HEMOGLOBIN 27.1 pg (27.9-34.1); MEAN CELL HEMOGLOBIN CONCENTR. 34.3 g/dL (32.4-36.7); MEAN PLATELET VOLUME 9.4 fL (8.7-11.7); PLATELET CLUMPS FLAG 0 (0-99); PLATELET COUNT 107 10^3/uL (150-400); RED BLOOD CELL COUNT 2.62 10^6/uL (4.40-6.38); RED CELL DISTRIBUTION WIDTH 16.5 % (11.5-15.2)
[2017-01-28 05:34] LABS: ADD SCAN? NO; LEFT SHIFT FLG 300 (0-99)
[2017-01-28 05:40] LABS: CALCIUM 7.7 mg/dL (8.5-10.4); CARBON DIOXIDE 28 mEq/l (22-31); CHLORIDE 96 mEq/L (97-110); CREATININE 0.6 mg/dL (0.7-1.3); GLOMERULAR FILTRATION RATE > 60; GLUCOSE 86 mg/dL (70-100); MAGNESIUM 1.8 mg/dL (1.6-2.3); SODIUM 127 mEq/L (134-144)
[2017-01-28 06:08] LABS: PLATELET ESTIMATE DECREASED (ADEQ)
[2017-01-28 06:11] LABS: LARGE PLATELETS PRESENT; TOXIC GRANULATION PRESENT
[2017-01-28 06:26] LABS: ANION GAP 3 mEq/L (8-16); POTASSIUM 3.3 mEq/L (3.5-5.2)
[2017-01-28] MEDS ORDERED: POTASSIUM CL 10 MEQ TAB PO ONE ×4 (09:34→19:27)
[2017-01-28] MEDS ORDERED: PROTOCOL POTASSIUM 1 DOSE MISC PRN (09:38)
[2017-01-28] MEDS: DRONABINOL 2.5 MG CAP PO SCH ×3 (10:13→22:07)
[2017-01-28] MEDS: TAMSULOSIN HCL 0.4 MG CAP PO SCH (10:13)
[2017-01-28] MEDS: SENNOSIDES/DOCUSATE SODIUM TAB PO SCH ×2 (10:13→22:07)
[2017-01-28] MEDS: PANTOPRAZOLE SODIUM 40 MG TAB PO SCH ×2 (10:13→22:06)
[2017-01-28] MEDS: ENOXAPARIN 40 MG/0.4 ML SYR SC SCH (10:26)
--- NOTE | 2017-01-28 10:45 | SOAPPROG ---
ANEUDY Progress Note Assessment/Plan: Assessment: 66 yo gentleman w Stage IVB DLBCL (extensive bony involvement), non-GCB, myc and bcl-2 pending s/p RCHOP 01/15 1. DLBCL - slow to recover cognition/delrium but he seems much clearer today. completed filgrastim. WBC coming up (now 1.3). 2. SIADH - Na+ stable at 127 today 3. Malnutrition 4. Ileus - ?from vincristine; was on TPN but pulled PICC; taking po 5. plts 107k and improving 6. peripheral neuropathy - C/O numbness in R leg 7. anemia - hgb 7.1. No transfusion today. 8. Fever - some scattered rales. on antibiotics but needs CXR (I ordered it) Plan: - continue to monitor CBC - continue to monitor hyponatremia - no transfusions today - CXR - incentive spirometry Subjective: chilling and cold. Didn't sleep well last night. Objective: Vital Signs Temp Pulse Resp BP Pulse Ox 36.7 C 96 18 110/60 90 L 01/28/17 04:00 01/28/17 04:00 01/28/17 04:00 01/28/17 04:00 01/28/17 04:00 Laboratory Results 01/28/17 04:44 01/28/17 04:44 01/26/17 01/27/17 01/28/17 23:59 23:59 23:59 Intake Total 2268 2629 150 Output Total 2225 700 1350 Balance 43 1929 -1200 PT 13.0 SEC (12.0-15.0) 01/21/17 04:40 INR 0.99 (0.83-1.16) 01/21/17 04:40 Physical Exam - Physical Exam General Appearance: moderate distress Respiratory: rales (scattered) Cardiac/Chest: regular rate, rhythm Abdomen: normal bowel sounds, soft Skin: pallor ICD10 Worksheet Patient Problems: Problems Problem Status Onset Chronic hyponatremia Acute Dehydration Acute Failure to thrive Acute Mediastinal adenopathy Acute
--- NOTE | 2017-01-28 15:53 | HOSPPROG ---
Hospitalist Progress Note Assessment/Plan: 66 yo M pw weight loss and weakness found to have left hilar mass and LAD ultimately worked up and found to be DLBCL now s/p RCHOP # stage 4 DLBCL: new diagnosis, extensive bony involvement, presented with sxs of weight loss and fatigue with LAD, now s/p RCHOP 01/15. Plan would be for restaging only after about the second round of chemo. # SIRS: patient with fever overnight, tachycardic. Blood cultures sent and are pending, cxr obtained, personally reviewed and is normal w/o infiltrate. UA negative for signs of infection. Will trend, consider w/u for non infectious etiologies of fever if continues. # HCAP: on personal review of cxr's there had been a LLL PNA that has now resolved, s/p 5 days of levofloxacin # pancytopenia: related to chemotherapy as above, wbc on the rise, h/h and platelets still trending slightly down, no indication for tx currently # acute urinary retention: sp aguayo, started on tamsulosin # acute encephalopathy: with waxing and waning mental status c/w delerium in setting of prolonged hospitalization, improved # spcm: with BMI of 15 and continued poor po intake at this point. Started calorie counts, will also add marinol to help with appetite. # hyponatremia: with SIADH as underlying issue, has been relatively stable but a bit lower again at 127. Continue fluid restriction. Holding off on salt tabs given difficulty with appetite. # ileus: ? 2/2 vincristine, resolved # ptx: occurred s/p bx, personally reviewed most recent cxr without e/o infection # dispo: IP status, dc still unclear, likely will need to go to snf Reviewed care plan with Dr. Stringer and family present at bedside. Subjective: no significant overnight events, patient currently feeling ok other than continued fatigue Objective: Vital Signs Temp Pulse Resp BP Pulse Ox 37.8 C 114 H 16 130/60 H 91 L 01/28/17 15:38 01/28/17 15:38 01/28/17 15:38 01/28/17 15:38 01/28/17 15:38 Laboratory Results 01/28/17 04:44 01/28/17 04:44 01/27/17 01/28/17 01/29/17 05:59 05:59 05:59 Intake Total 2290 1450 Output Total 1100 2050 950 Balance 1190 -600 -950 PT 13.0 SEC (12.0-15.0) 01/21/17 04:40 INR 0.99 (0.83-1.16) 01/21/17 04:40 awake alert cachectic anicteric op clear rrr no mrg cta normal wob soft nt nd no cce warm dry well perfused oriented appropriate - Time Spent With Patient Time Spent with Patient: greater than 35 minutes Time Spent with Patient: Greater than 35 minutes spent on this patients care, greater than 50% of time spent counseling, educating, and coordinating care regarding the above mentioned plan. ICD10 Worksheet Patient Problems: Problems Problem Status Onset Chronic hyponatremia Acute Dehydration Acute Failure to thrive Acute Mediastinal adenopathy Acute
[2017-01-28] MEDS ORDERED: MAGNESIUM SULF 1 GM/DEXTROSE 100 ML IV ONE (19:03)
[2017-01-28 19:20] LABS: POTASSIUM 3.1 mEq/L (3.5-5.2)
[2017-01-28] MEDS ORDERED: POTASSIUM CL 20 MEQ TAB PO ONE (22:00)
[2017-01-28] MEDS: MIRTAZAPINE 15 MG TAB PO SCH (22:07)
[2017-01-29] MEDS: NS 1,000 ML IV SCH ×2 (00:24→12:19)
[2017-01-29] MEDS: PIPERACILLIN/TAZO 3.375 GM/DEX 50 ML IV SCH ×5 (00:24→23:26)
[2017-01-29 05:57] LABS: POTASSIUM 3.8 mEq/L (3.5-5.2)
[2017-01-29] MEDS ORDERED: POTASSIUM CL 10 MEQ TAB PO ONE ×2 (07:51→19:29)
[2017-01-29 08:03] LABS: ABSOLUTE NRBC COUNT 0.02 10^3/uL (0-0.01); ADD DIFF? YES; ADD MORPH? NO; ATYPICAL LYMPHOCYTE FLAG 0 (0-99); FRAGMENT RBC FLAG 0 (0-99); HEMOGLOBIN 7.9 g/dL (13.7-17.5); LIPEMIA HEMOLYSIS FLAG 80 (0-99); MEAN CELL HEMOGLOBIN 26.5 pg (27.9-34.1); MEAN CELL HEMOGLOBIN CONCENTR. 32.9 g/dL (32.4-36.7); MEAN CELL VOLUME 80.5 fL (81.5-99.8); MEAN PLATELET VOLUME 8.5 fL (8.7-11.7); NRBC-AUTO% 0.9 % (0.0-0.2); PLATELET CLUMPS FLAG 0 (0-99); PLATELET COUNT 169 10^3/uL (150-400); RED BLOOD CELL COUNT 2.98 10^6/uL (4.40-6.38)
[2017-01-29 08:06] LABS: ADD SCAN? NO; LEFT SHIFT FLG 300 (0-99)
[2017-01-29] MEDS: TAMSULOSIN HCL 0.4 MG CAP PO SCH (09:39)
[2017-01-29] MEDS: PANTOPRAZOLE SODIUM 40 MG TAB PO SCH ×2 (09:39→21:00)
[2017-01-29] MEDS: DRONABINOL 2.5 MG CAP PO SCH ×3 (09:39→21:00)
[2017-01-29] MEDS: SENNOSIDES/DOCUSATE SODIUM TAB PO SCH ×2 (09:40→21:01)
[2017-01-29] MEDS: ENOXAPARIN 40 MG/0.4 ML SYR SC SCH (09:41)
[2017-01-29 09:46] LABS: PLATELET ESTIMATE ADEQUATE (ADEQ)
[2017-01-29 09:47] LABS: MICROCYTES 1+
[2017-01-29 09:48] LABS: POLYCHROMASIA 1+
--- NOTE | 2017-01-29 09:51 | WOCRNPDOC ---
WOCRSheryl Advanced Assessment Note - Skin Integrity Problem, Advanced Assess Coccyx Dressing Type: Allevyn Life Dressing Description: Soiled (stool on distal aspect) Exudate Amount: None Exudate Characteristic(s): None Integumentary Issue Intervention: Dressing Changed, Hydrogel Applied Remedios Wound Tissue: Blanching, Erythema, Non-blanching Remedios Wound Swelling: Mild Wound Bed Color: Red Site Odor: None Site Measurement - Head-to-Toe Length X Width X Depth (cm): Distal coccyx: 0.4cmx0.4cmx0.1cm. Proximal coccyx: 0.4cmx0.2cmx0.1cm Pressure Injury Stage: Stage 2 Pressure Injury Present on Admit: No (Hospitalist notified) Skin Integrity Problem Comment: Two discrete areas of partial-thickness tissue loss on distal and proximal coccyx, consistent in appearance w/ stage II pressure injury. Remedios-wound tissue is a constellation of pressure-related injuries, including another stage II on the sacrum, and two suspected deep tissue injuries on his L medial buttock. Hydrogel and protective dressing applied to site w/ assistance of supervisor composing roomMERI Singh. Hospitalist notified about these injuries. Pressure-relieving interventions initiated, including Accu-max mattress and pump, turns [id number] q2, and pressure-relieving cushion applied to his chair w/ orders to reposition q1. Sacrum Pressure Injury Dressing Type: Allevyn Life Dressing Description: Soiled (stool noted on distal aspect) Exudate Amount: None Exudate Characteristic(s): None Integumentary Issue Intervention: Dressing Changed, Hydrogel Applied Remedios Wound Tissue: Blanching, Erythema, Non-blanching Remedios Wound Swelling: Mild Wound Bed Color: Red Site Odor: None Site Measurement - Head-to-Toe Length X Width X Depth (cm): 0.6cmx0.5cmx0.1cm Pressure Injury Stage: Stage 2 Pressure Injury Present on Admit: No (Hospitalist notifed) Skin Integrity Problem Comment: Area of partial-thickness tissue loss noted on distal sacrum, consistent in appearance w/ stage II pressure injury. Remedios-wound tissues are thin and friable, w/ blanching erythema noted to the L lateral remedios- wound area. Protective dressing and hydrogel applied. Pressure-relieving measures initiated. supervisor composing roomMERI Singh present and assisting. Left Medial Buttock Pressure Injury Dressing Type: Allevyn Life Dressing Description: Soiled (stool noted on distal aspect) Exudate Amount: None Exudate Characteristic(s): None Integumentary Issue Intervention: Dressing Changed Remedios Wound Tissue: Blanching, Erythema, Non-blanching Remedios Wound Swelling: Mild Wound Bed Color: Purple, Red Site Odor: None Site Measurement - Head-to-Toe Length X Width X Depth (cm): Stage I: [id number]. SDTI (located w/in area of stage I): [id number] Pressure Injury Stage: Stage 1, Deep Tissue Injury (DTI) Pressure Injury Present on Admit: No (Hospitalist notified) Skin Integrity Problem Comment: Two pressure injuries noted along medial aspect of L buttock: a larger, stage I w/ non-blanching erythema, and an area of pinpoint ecchymosis constsitent w/ SDTI noted medially. While this injury is not located over a bony prominence, patient's BMI is very low and he has not been moving very much per nursing report. In addition, he has three other pressure-related injuries in and around this site. The tissues over the wound itself are firm and indurated. Patient presently denies pain when site is palpated. Pressure-relieving precautions initiated. Left Lateral Sacrum Pressure Injury Dressing Type: Allevyn Life Dressing Description: Soiled (stool noted on distal aspect) Exudate Amount: None Exudate Characteristic(s): None Integumentary Issue Intervention: Dressing Changed Remedios Wound Tissue: Blanching, Erythema, Non-blanching Remedios Wound Swelling: Mild Wound Bed Color: Purple Site Odor: None Site Odor Comment: [id number] Pressure Injury Stage: Deep Tissue Injury (DTI) Pressure Injury Present on Admit: No (Hospitalist notified) Skin Integrity Problem Comment: Area of dark purple discoloration noted on L lateral sacrum, consistent in appearance w/ suspected deep tissue injury. Remedios- wound tissues are a mix of blanching and non-blanching erythema, with four other pressure injuries observed on his sacrum and coccyx. Pressure-relieving precautions initiated.
[2017-01-29] MEDS ORDERED: MAGNESIUM SULF 1 GM/DEXTROSE 100 ML IV ONE (10:40)
--- NOTE | 2017-01-29 10:51 | HOSPPROG ---
Hospitalist Progress Note Assessment/Plan: 66 yo M pw weight loss and weakness found to have left hilar mass and LAD ultimately worked up and found to be DLBCL now s/p RCHOP # stage 4 DLBCL: new diagnosis, extensive bony involvement, presented with sxs of weight loss and fatigue with LAD, now s/p RCHOP /. Has been quite slow to recover # SIRS/neutropenic fever: continues to fever intermittently, started on zosyn. CXR w/o e/o PNA, UA negative, blood cultures with NGTD. Continue to monitor. # pressure ulcers: noted on sacrum, reviewed with wound care and appears to be stage 2 # HCAP: on personal review of cxr's there had been a LLL PNA that has now resolved, s/p 5 days of levofloxacin # pancytopenia: related to chemotherapy as above, wbc on the rise, h/h and platelets still trending slightly down, no indication for tx currently # acute urinary retention: sp aguayo, started on tamsulosin # acute encephalopathy: with waxing and waning mental status c/w delerium in setting of prolonged hospitalization, improved # spcm: with BMI of 15 and continued poor po intake at this point. Started calorie counts, will also add marinol to help with appetite. # hyponatremia: with SIADH as underlying issue, has been relatively stable but a bit lower again at 127. Continue fluid restriction. Holding off on salt tabs given difficulty with appetite. # ileus: ? 2/2 vincristine, resolved # ptx: occurred s/p bx, personally reviewed most recent cxr without e/o infection # dispo: IP status, dc still unclear, likely will need to go to snf Reviewed care plan with family present at bedside, answered questions regarding his progress, care plan reviewed with damascener. Subjective: no significant overnight events, patient somnolent today but otherwise feeling the same, denies pain, had fever this am Objective: Vital Signs Temp Pulse Resp BP Pulse Ox 37.6 C 98 16 130/80 H 90 L 01/29/17 07:49 01/29/17 07:49 01/29/17 07:49 01/29/17 07:49 01/29/17 07:49 Laboratory Results 01/29/17 07:50 01/29/17 04:32 01/28/17 01/29/17 01/30/17 05:59 05:59 05:59 Intake Total 1450 2800 100 Output Total 2050 3350 Balance -600 -550 100 PT 13.0 SEC (12.0-15.0) 01/21/17 04:40 INR 0.99 (0.83-1.16) 01/21/17 04:40 awake alert cachectic anicteric op clear rrr no mrg cta normal wob soft nt nd no cce warm dry well perfused somnolent appropriate - Time Spent With Patient Time Spent with Patient: greater than 35 minutes Time Spent with Patient: Greater than 35 minutes spent on this patients care, greater than 50% of time spent counseling, educating, and coordinating care regarding the above mentioned plan. ICD10 Worksheet Patient Problems: Problems Problem Status Onset Chronic hyponatremia Acute Dehydration Acute Failure to thrive Acute Mediastinal adenopathy Acute
[2017-01-29 12:03] LABS: ALBUMIN 2.4 g/dL (3.5-5.0); BILIRUBIN,TOTAL 0.6 mg/dL (0.1-1.4); BILIRUBIN-CONJUGATED 0.5 mg/dL (0.0-0.5); BILIRUBIN-UNCONJUGATED 0.1 mg/dL (0.0-1.1); TOTAL PROTEIN 4.9 g/dL (6.3-8.2)
--- NOTE | 2017-01-29 12:14 | SOAPPROG ---
SOAP Progress Note Assessment/Plan: Assessment: 66 yo gentleman w Stage IVB DLBCL (extensive bony involvement), non-GCB, myc and bcl-2 pending s/p RCHOP 01/15 1. DLBCL - He is slowly getting stronger. Eating yogurt when I walked in the room. 2. SIADH - on 1200ml/day fluid restriction 3. Malnutrition 4. Ileus - ?from vincristine; taking PO 5. plts 169k 6. peripheral neuropathy - C/O numbness in R leg 7. anemia - hgb 7.9. No transfusion today. 8. Fever - still intermittently febrile. CXR yesterday showed no new infiltrates 9. WBC improving and is now 2.15k Plan: - continue to monitor CBC - continue to monitor hyponatremia - no transfusions today - incentive spirometry Subjective: C/O fatigue Objective: Vital Signs Temp Pulse Resp BP Pulse Ox 37.6 C 98 16 130/80 H 90 L 01/29/17 07:49 01/29/17 07:49 01/29/17 07:49 01/29/17 07:49 01/29/17 07:49 Laboratory Results 01/29/17 07:50 01/29/17 04:32 01/27/17 01/28/17 01/29/17 23:59 23:59 23:59 Intake Total 2629 1750 1300 Output Total 700 2950 3225 Balance 1929 -1200 -1925 PT 13.0 SEC (12.0-15.0) 01/21/17 04:40 INR 0.99 (0.83-1.16) 01/21/17 04:40 Physical Exam - Physical Exam General Appearance: mild distress Respiratory: lungs clear Cardiac/Chest: regular rate, rhythm Skin: pallor Neuro/Psych: depressed affect ICD10 Worksheet Patient Problems: Problems Problem Status Onset Chronic hyponatremia Acute Dehydration Acute Failure to thrive Acute Mediastinal adenopathy Acute
--- NOTE | 2017-01-29 16:49 | CPEKG ---
Heart Rate: 121 RR Interval: 496 P-R Interval: 160 QRSD Interval: 86 QT Interval: 296 QTC Interval: 420 P [place]: 82 QRS [place]: -9 T Wave [place]: 80 EKG Severity - OTHERWISE NORMAL ECG - EKG Impression: SINUS TACHYCARDIA EKG Impression: NON-SPECIFIC ST DEPRESSION. Electronically Signed By: Saul Camarena 31-Jan-2017 07:37:11
[2017-01-29] MEDS ORDERED: NS 1,000 ML IV ONE (18:00)
[2017-01-29 18:16] LABS: POTASSIUM 3.6 mEq/L (3.5-5.2)
[2017-01-29] MEDS: MIRTAZAPINE 15 MG TAB PO SCH (21:00)
[2017-01-30 04:46] LABS: ANION GAP 7 mEq/L (8-16); CALCIUM 7.8 mg/dL (8.5-10.4); CARBON DIOXIDE 30 mEq/l (22-31); CHLORIDE 94 mEq/L (97-110); CREATININE 0.7 mg/dL (0.7-1.3); GLOMERULAR FILTRATION RATE > 60; GLUCOSE 90 mg/dL (70-100); MAGNESIUM 1.9 mg/dL (1.6-2.3); POTASSIUM 3.3 mEq/L (3.5-5.2); SODIUM 131 mEq/L (134-144)
[2017-01-30] MEDS: NS 1,000 ML IV SCH (05:01)
[2017-01-30] MEDS: PIPERACILLIN/TAZO 3.375 GM/DEX 50 ML IV SCH ×4 (05:01→23:01)
[2017-01-30] MEDS: DRONABINOL 2.5 MG CAP PO SCH ×3 (09:36→20:01)
[2017-01-30] MEDS: ENOXAPARIN 40 MG/0.4 ML SYR SC SCH (09:36)
[2017-01-30] MEDS: PANTOPRAZOLE SODIUM 40 MG TAB PO SCH ×2 (09:36→20:01)
[2017-01-30] MEDS: SENNOSIDES/DOCUSATE SODIUM TAB PO SCH ×2 (09:36→20:02)
[2017-01-30] MEDS: TAMSULOSIN HCL 0.4 MG CAP PO SCH (09:36)
--- NOTE | 2017-01-30 11:16 | SOAPPROG ---
SOAP Progress Note Assessment/Plan: Assessment: Assessment: 66 yo gentleman w Stage IVB DLBCL (extensive bony involvement), non-GCB, myc and bcl-2 pending s/p RCHOP 01/15 1. DLBCL - He is slowly getting stronger. appetite still an issue 2. SIADH - on 1200ml/day fluid restriction 3. Malnutrition 4. Ileus - resolved 5. plts 169k yesterday, pending from today 6. peripheral neuropathy - C/O numbness in R leg 7. anemia - hgb 7.9yesterday 8. Fever - on antibiotics, may be able to d/c if he remians afebrile and counts improve 9. WBC improving and is now 2.15, pending from today Plan: - continue to monitor CBC - Try to improve strength, d/c aguayo, stop maintenance iv. Will be due for a second cycle r chop wednesday. Discussed with Dr Bazan 01/30/17 11:17 Subjective: wants to get out of hospital Objective: Vital Signs Temp Pulse Resp BP Pulse Ox 97.6 F 86 18 122/58 H 91 L 01/30/17 08:45 01/30/17 08:45 01/30/17 08:45 01/30/17 08:45 01/30/17 08:45 Laboratory Results 01/29/17 07:50 01/30/17 04:09 01/29/17 01/30/17 01/31/17 05:59 05:59 05:59 Intake Total 2800 3350 Output Total 3350 4950 Balance -550 -1600 PT 13.0 SEC (12.0-15.0) 01/21/17 04:40 INR 0.99 (0.83-1.16) 01/21/17 04:40 Physical Exam - Physical Exam General Appearance: cachetic Respiratory: decreased breath sounds Cardiac/Chest: regular rate, rhythm Abdomen: normal bowel sounds, non-tender ICD10 Worksheet Patient Problems: Problems Problem Status Onset Chronic hyponatremia Acute Dehydration Acute Failure to thrive Acute Mediastinal adenopathy Acute
[2017-01-30] MEDS ORDERED: POTASSIUM CL 10 MEQ TAB PO ONE ×2 (11:20→19:49)
--- NOTE | 2017-01-30 12:28 | HOSPPROG ---
Hospitalist Progress Note Assessment/Plan: 66 year old gentleman w Stage IVB DLBCL (extensive bony involvement), non-GCB, myc and bcl-2 pending s/p RCHOP 01/15 1. DLBCL - He is slowly getting stronger 2. SIADH (improving Na) -buff cap iv 3. Malnutrition -cont to encourago diet 4. Ileus - resolved 5. plts 169k yesterday, pending from today 6. peripheral neuropathy - C/O numbness in R leg 7. anemia - 8. Fever - on antibiotics, may be able to d/c if he remians afebrile and counts improve -will repeat cbc tomorrow pt is high risk Subjective: continues to feel weak. improving appetite. no fevers or chills Objective: Vital Signs Temp Pulse Resp BP Pulse Ox 36.4 C 81 18 108/58 L 97 01/30/17 08:45 01/30/17 11:50 01/30/17 11:50 01/30/17 11:50 01/30/17 11:50 Laboratory Results 01/29/17 07:50 01/30/17 04:09 01/29/17 01/30/17 01/31/17 05:59 05:59 05:59 Intake Total 2800 3350 Output Total 3350 4950 Balance -550 -1600 PT 13.0 SEC (12.0-15.0) 01/21/17 04:40 INR 0.99 (0.83-1.16) 01/21/17 04:40 blood cultures reviewed - Physical Exam Constitutional: no apparent distress, appears nourished, not in pain Cardiovascular: regular rate and rhythym, no murmur, rub, or gallop Respiratory: no respiratory distress, no rales or rhonchi, clear to auscultation Gastrointestinal: normoactive bowel sounds, soft, non-tender abdomen, no palpable masses Neurologic: AAOx3, sensation intact bilaterally ICD10 Worksheet Patient Problems: Problems Problem Status Onset Chronic hyponatremia Acute Mediastinal adenopathy Acute Dehydration Acute Failure to thrive Acute
[2017-01-30 17:35] LABS: POTASSIUM 3.2 mEq/L (3.5-5.2)
[2017-01-30] MEDS: MIRTAZAPINE 15 MG TAB PO SCH (20:01)
[2017-01-31 05:18] LABS: ADD DIFF? YES; ADD MORPH? NO; ATYPICAL LYMPHOCYTE FLAG 20 (0-99); FRAGMENT RBC FLAG 0 (0-99); HEMATOCRIT 23.9 % (40.0-51.0); HEMOGLOBIN 7.8 g/dL (13.7-17.5); LIPEMIA HEMOLYSIS FLAG 80 (0-99); MEAN CELL HEMOGLOBIN 27.3 pg (27.9-34.1); MEAN CELL HEMOGLOBIN CONCENTR. 32.6 g/dL (32.4-36.7); MEAN CELL VOLUME 83.6 fL (81.5-99.8); MEAN PLATELET VOLUME 8.5 fL (8.7-11.7); PLATELET CLUMPS FLAG 0 (0-99); PLATELET COUNT 238 10^3/uL (150-400); RED BLOOD CELL COUNT 2.86 10^6/uL (4.40-6.38); RED CELL DISTRIBUTION WIDTH 17.2 % (11.5-15.2)
[2017-01-31 05:26] LABS: ANION GAP 7 mEq/L (8-16); CALCIUM 8.4 mg/dL (8.5-10.4); CARBON DIOXIDE 34 mEq/l (22-31); CHLORIDE 92 mEq/L (97-110); CREATININE 0.6 mg/dL (0.7-1.3); GLOMERULAR FILTRATION RATE > 60; GLUCOSE 109 mg/dL (70-100); POTASSIUM 3.2 mEq/L (3.5-5.2); SODIUM 133 mEq/L (134-144)
[2017-01-31 05:35] LABS: ADD SCAN? NO; LEFT SHIFT FLG 150 (0-99)
[2017-01-31] MEDS: PIPERACILLIN/TAZO 3.375 GM/DEX 50 ML IV SCH ×2 (05:35→13:26)
[2017-01-31 05:37] VITALS: O2SAT 100
[2017-01-31 06:04] LABS: MICROCYTES 1+; POLYCHROMASIA 1+
[2017-01-31 06:05] LABS: PLATELET ESTIMATE ADEQUATE (ADEQ)
[2017-01-31] MEDS ORDERED: levETIRAcetam 500 MG in NS 100 ML IV ONE ×3 (07:27→11:49)
--- NOTE | 2017-01-31 07:27 | CPEKG ---
Heart Rate: 152 RR Interval: 395 QRSD Interval: 182 QT Interval: 364 QTC Interval: 579 QRS [place]: -55 T Wave [place]: -37 EKG Severity - DEFECTIVE ECG - EKG Impression: TECHNICALLY POOR TRACING - PLEASE REPEAT ECG! EKG Impression: EXTREME TACHYCARDIA WITH WIDE COMPLEX, NO FURTHER RHYTHM ANALYSIS ATTEMPTED Electronically Signed By: Saul Camarena 31-Jan-2017 07:36:36
[2017-01-31] MEDS ORDERED: PHENYTOIN SODIUM IV ONE (07:30)
[2017-01-31] MEDS ORDERED: NS IV ONE (07:30)
[2017-01-31] MEDS ORDERED: LORazepam 2 MG/ML INJ ONE (07:36)
[2017-01-31] MEDS ORDERED: PROPOFOL/EMULSION 1,000 MG/100 ML BOTTLE IV ONE (07:41)
--- NOTE | 2017-01-31 07:45 | EDPHY ---
Inpatient Procedure Narrative: Procedure: Patient intubation Indication: Airway protection, status epilepticus Procedure: RSI Intubation Indication for the procedure was status epilepticus and airway protection. The patient was preoxygenated with 100% oxygen by face mask. The patient was sedated with etomidate and paralyzed with succinylcholine. The patient was orally endotracheally intubated under direct visualization with a 7.5 ETT. Tracheal intubation was confirmed with misting on the tube; breath sounds were auscultated equally bilaterally; appropriate color change with [place] CO2 detector, capnography waveform is appropriate, oxygen saturation after procedure is 100%. Chest X-ray shows ETT in good position. The procedure was performed by myself. Discussion: I was called to the floor for a emergent intubation of the patient that was being managed by Dr. Pawel Berman with status epilepticus. The patient had received IV Ativan as well as Keppra. The patient continued to seize. The patient was intubated without complication by myself. The patient will be started on a propofol drip. The patient will be taken for a emergent CT scan of his brain in the transferred to the ICU for further care. The patient's care was transfer back to the hospitalist service following intubation.
[2017-01-31] MEDS ORDERED: ETOMIDATE 40 MG/20 ML INJ ONE (07:56)
[2017-01-31] MEDS ORDERED: SUCCINYLCHOLINE CHLORIDE*ANESTHESIA ONLY*200 MG/10 ML SYR IVP ONE (07:56)
--- NOTE | 2017-01-31 07:56 | HOSPPROG ---
Hospitalist Progress Note Assessment/Plan: 45 minutes of bedside critical care time spent with this patient, remains critically ill, addressing the following: - around 7:00 a.m. 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 Sawyer Sena contacted, he came to bedside , performed intubation with RT, administering accommodate 20 mg, succinylcholine 100 mg, 2 mg IV Ativan - patient is epileptiform movements discontinued, he was intubated successfully , his SpO2 increase to 100% - EKG was performed demonstrated a sinus tachycardia without ischemic changes - patient has diffuse large B-cell lymphoma and is at high risk for BOILING HOUSE HAND disease , provoking his seizures, getting head CT now - patient will be transferred to the intensive care unit thereafter - chest x-ray will be performed to confirm ET tube placement as well as rule out aspiration during the above event - will repeat chemistry and labs upon arrival to the intensive care unit - family was notified of the above event and they confirmed the patient is full resuscitation measure, full goals of care - the family reports that they will be coming to bedside in the immediate future and at that time are providers will discuss whether the patient should receive transfer to continuous EEG monitoring unit - if the patient demonstrates recurrence of rhythmic movements after the tolerating and succinylcholine deactivate, then the patient should receive 750 mg of IV Dilantin - 500 mg of IV Keppra will be continued q.12 hours Objective: Vital Signs Temp Pulse Resp BP Pulse Ox 36 C 80 18 141/68 H 100 01/31/17 04:00 01/31/17 04:00 01/31/17 04:00 01/31/17 04:00 01/31/17 04:00 Laboratory Results 01/31/17 04:41 01/31/17 04:41 01/30/17 01/31/17 02/01/17 05:59 05:59 05:59 Intake Total 3350 880 Output Total 4950 4 Balance -1600 876 PT 13.0 SEC (12.0-15.0) 01/21/17 04:40 INR 0.99 (0.83-1.16) 01/21/17 04:40 ICD10 Worksheet Patient Problems: Problems Problem Status Onset Chronic hyponatremia Acute Mediastinal adenopathy Acute Dehydration Acute Failure to thrive Acute
[2017-01-31] MEDS ORDERED: LORazepam 2 MG/ML INJ IVP/IM ONE (08:00)
[2017-01-31 09:13] LABS: ABSOLUTE NRBC COUNT 0.02 10^3/uL (0-0.01); ADD DIFF? YES; ADD MORPH? NO; ATYPICAL LYMPHOCYTE FLAG 0 (0-99); FRAGMENT RBC FLAG 0 (0-99); HEMATOCRIT 28.2 % (40.0-51.0); HEMOGLOBIN 9.4 g/dL (13.7-17.5); LIPEMIA HEMOLYSIS FLAG 80 (0-99); MEAN CELL HEMOGLOBIN 27.3 pg (27.9-34.1); MEAN CELL HEMOGLOBIN CONCENTR. 33.3 g/dL (32.4-36.7); MEAN PLATELET VOLUME 8.7 fL (8.7-11.7); NRBC-AUTO% 0.8 % (0.0-0.2); PLATELET CLUMPS FLAG 10 (0-99); PLATELET COUNT 191 10^3/uL (150-400); RED BLOOD CELL COUNT 3.44 10^6/uL (4.40-6.38); RED CELL DISTRIBUTION WIDTH 17.4 % (11.5-15.2)
[2017-01-31 09:15] LABS: ADD SCAN? NO; LEFT SHIFT FLG 130 (0-99)
[2017-01-31] MEDS: PANTOPRAZOLE SODIUM 40 MG TAB PO SCH (09:25)
[2017-01-31] MEDS: DRONABINOL 2.5 MG CAP PO SCH (09:26)
[2017-01-31] MEDS: TAMSULOSIN HCL 0.4 MG CAP PO SCH (09:29)
[2017-01-31] MEDS: SENNOSIDES/DOCUSATE SODIUM TAB PO SCH (09:29)
[2017-01-31 09:34] LABS: ALANINE AMINOTRANSFERASE 42 IU/L (21-72); ALBUMIN 2.6 g/dL (3.5-5.0); ALKALINE PHOSPHATASE 191 IU/L (38-126); ANION GAP 8 mEq/L (8-16); ASPARTATE AMINOTRANSFERASE 27 IU/L (17-59); BILIRUBIN,TOTAL 0.8 mg/dL (0.1-1.4); CALCIUM 8.2 mg/dL (8.5-10.4); CARBON DIOXIDE 33 mEq/l (22-31); CHLORIDE 92 mEq/L (97-110); CREATININE 0.6 mg/dL (0.7-1.3); GLOMERULAR FILTRATION RATE > 60; GLUCOSE 162 mg/dL (70-100); SODIUM 133 mEq/L (134-144)
[2017-01-31 09:35] LABS: BASE EXCESS 10.2 mEq/L (-2.5-2.5); BICARBONATE 33 mEq/L (22-26); MEASURED OXYGEN SATURATION 100 % (92-95); PCO2 33 mmHg (34-38); PO2 158 mmHg (65-75); TCO2 34 mEq/L (23-27)
[2017-01-31 09:36] LABS: P/F RATIO 198 RATIO
[2017-01-31 09:37] LABS: END TIDAL CO2 30; O2 CONCENTRATIION 80 % (0-100); PATIENT RATE 16; PRESSURE SUPPORT 7; SIMV YES
[2017-01-31] MEDS ORDERED: fentaNYL/NACL 100 ML IV SCH (09:46)
[2017-01-31] MEDS ORDERED: PROPOFOL/EMULSION 100 ML IV SCH (09:46)
[2017-01-31 09:59] LABS: PLATELET ESTIMATE ADEQUATE (ADEQ)
[2017-01-31 10:00] LABS: MICROCYTES 1+; POLYCHROMASIA 1+
[2017-01-31] MEDS ORDERED: PANTOPRAZOLE SODIUM 40 MG in NS 100 ML IV SCH (10:00)
[2017-01-31] MEDS: ENOXAPARIN 40 MG/0.4 ML SYR SC SCH (10:03)
[2017-01-31] MEDS: POTASSIUM Cl (KCl) 100 ML IV SCH ×4 (10:03→13:24)
--- NOTE | 2017-01-31 11:55 | NEUROPROG ---
Assessment: CC: Seizure, Lymphoma HPI: This 66M patient was admitted to [facility] on 01/08/17 for weakness and weight loss and eventually found to have lymphoma. He was treated as an inpatient with chemotherapy and had been getting stronger (per hospitalist note from 01/30/17). He had Stage IVB DLBCL (extensive bony involvement) and underwent chemotherapy (HOP 01/15/17). He also had SIADH and malnutrition. He was also noted to have right leg numbness so was felt to have an associated peripheral neuropathy. He had required antibiotics for a fever but was improving. He was anemic. On the morning of 01/31/17 he began having a seizure with left arm jerking and deviated gaze to the left side. He was given 8 mg Aitvan and started on Keppra 500mg IV bid but did not improve so he was emergently intubated. After intubation, his rhythmic jerking stopped. He was placed in the ICU. PMHx: none SHx: prior smoker FHx: cancer ROS: unable to obtain O: VS bp 112/59 RR 14 P 92 Satting 100% on vent Temp 36.2C NSR Lying in bed intubated, not answering questions or following commands, having a myoclonic type whole body jerk 1-2 times every 5 min, right leg also possibly has triple flexion response but no pain withdrawal Labs: 01/31/17- CBC WBC 2.59L Hct 28.2L, BMP Na 133L K 3.0L CO2 92L Cr 0.6L Gluc 162H Ca 8.2L Rads: 01/11/17- Brain MRI w/ and w/o con: white matter disease but no cancer or acute changes 01/31/17- Head CT w/o con: no acute changes (I personally visualized the images on 01/31/17) Assessment: 1. Status Epilepticus: Pt with history of lymphoma whom developed new onset seizure disorder this morning that was generalized and pt has not awaken since initial seizure. Pt now having rhythmic whole body myoclonic like jerks at times (once every 5 min) so given concern of continued seizure activity despite being on propofol and Keppra IV, the decision was made with his family at bedside to transfer to neuro-ICU at [facility] with continuous EEG monitoring. I will also give an additional Keppra 500mg IV now (already got Keppra 500mg IV earlier this morning) 2. Lymphoma undergoing chemotherapy: managed by oncology Plan: - Keppra 500mg IV stat now (already got Keppra 500mg IV early this am as well as Ativan 8mg and he is currently on propofol gtt) - Transfer to [facility] Neuro-ICU for continuous EEG monitoring (Dr. Brand at [facility] transfer) Critical Care Time: 45 min spent with acutely seizing patient whom is intubated in the ICU Objective: Vital Signs Temp Pulse Resp BP Pulse Ox 36.2 C 102 H 12 140/70 H 100 01/31/17 08:44 01/31/17 11:02 01/31/17 11:02 01/31/17 11:02 01/31/17 11:02 Laboratory Results 01/31/17 08:55 01/31/17 08:55 01/30/17 01/31/17 02/01/17 05:59 05:59 05:59 Intake Total 3350 880 Output Total 4950 4 Balance -1600 876 PT 13.0 SEC (12.0-15.0) 01/21/17 04:40 INR 0.99 (0.83-1.16) 01/21/17 04:40 Allergies/Adverse Reactions: No Known Allergies Allergy (Unverified 01/08/17 08:41)
[2017-01-31 12:27] VITALS: BP 138/71; RESP 14
--- NOTE | 2017-01-31 12:30 | GHP ---
[f rep st] HISTORY AND PHYSICAL DATE OF ADMISSION: 01/08/2017 HISTORY OF PRESENT ILLNESS: The patient has a history of stage IVB diffuse large B-cell lymphoma. He has primarily chest involvement but also extensive bony involvement on PET-CT scan. He does not have obvious bone marrow involvement on biopsy He received his 1st cycle of R-CHOP approximately 16 days ago and seemed to be doing reasonably well, although he presented quite debilitated with extensive weight loss. Today, he developed what appeared to be status epilepticus. CT of the brain was unremarkable. Despite antiepileptic drugs, he remains in status and is being transferred to [facility] for further evaluation. I note that an MRI of the brain performed on January 12 was unremarkable. ASSESSMENT: Status epilepticus in a patient with diffuse large B-cell lymphoma. The possibility of EXHIBITIONS AND COLLECTIONS MANAGER involvement is at least a consideration. This would require another MRI, and I think a lumbar puncture when his condition is stabilized. /[id number]/MODL MTDD
--- NOTE | 2017-01-31 12:40 | GHP ---
[f rep st] HISTORY AND PHYSICAL DATE OF ADMISSION: 01/08/2017 REFERRING PHYSICIAN: Marquis Bazan, This is a pulmonary/critical care consultation. REASON FOR REFERRAL: Evaluation and management of respiratory failure and seizure and status epilep ticus. HISTORY: The patient is a 66-year-old gentleman who was admitted to the hospital 3 weeks ago with w eakness and weight loss. He was found to have hyponatremia, elevated liver function tests, and medi astinal adenopathy, which was biopsied and discovered to be a B-cell lymphoma. He was started on R- CHOP therapy, and his hyponatremia was treated. He had developed an ileus that resolved and had tami e peripheral neuropathy as well as a fever that is being treated with Zosyn. This morning at 7 a.m. , he had the onset of generalized tonic-clonic seizure and tachycardia. He was given Ativan and Kep pra, and because of inability to protect his airway and hypoxemia, he was emergently intubated. He continued to have some apparent seizure activity and was given an additional dose of Keppra. He was also given 8 mg of Ativan, and there has been no further seizure activity witnessed. PAST MEDICAL HISTORY: None prior to hospitalization. MEDICATIONS: None prior to admission. Here in the hospital, he is getting Marinol, Benadryl, Loven ox, fentanyl, Keppra, lorazepam, olanzapine, ondansetron, pantoprazole, propofol, Flomax, and Zosyn. ALLERGIES: None. SOCIAL HISTORY: The patient is a retired truck driver teamster. He was a smoker but stopped 9 months ago. He denies alcohol use. FAMILY HISTORY: Positive for cancer in both parents. REVIEW OF SYSTEMS: Unobtainable. PHYSICAL EXAMINATION: GENERAL: The patient is intubated and sedated. VITAL SIGNS: His blood pres sure is 140/70 with a heart rate of 102. He is afebrile. Oxygen saturations are 100% on 80% oxygen . HEENT: Normocephalic and atraumatic. No icterus. NECK: No adenopathy. Trachea is midline. C HEST: Clear to auscultation. CARDIAC: Regular rate and rhythm without murmur. ABDOMEN: Soft, no ntender. Bowel sounds are present. EXTREMITIES: No clubbing, cyanosis, or edema. NEURO: The pat ient is unresponsive. His pupils are midposition and sluggishly reactive. He has flaccid tone in a ll extremities with no spontaneous movement. LABORATORY: Sodium is 133, up from a low of 117 around the time of admission, but was 131 yesterday . Potassium is 3.0. Glucose is 162. Calcium is 8.2 with an albumin of 2.6. White blood count is 2.6 with 4% bands. Hemoglobin is 9.4. Platelet count is 191. INR is 1.0. Arterial blood gas show s a pH of 7.60 with a pO2 of 158, a CO2 of 33, and a bicarbonate of 34 on 80% oxygen with a tidal vo lume of 600 and a respiratory rate of 14. Venous lactate is 2.7, and arterial lactate is 1.3. Urin alysis on 01/[address] scan of the head is negative. A chest x-ray shows no infiltrates and no pneumothorax. The endotracheal tube is in appropriate pos ition. Images reviewed. ASSESSMENT: 1. Status epilepticus with episodes prior to and then following intubation. This has been controll ed with Ativan and Keppra. There is significant risk of recurrence, given that the patient had a se cond fairly prolonged episode of probable seizure activity after intubation and receiving Keppra. T hese currently appear to be well controlled, with no evidence of active seizure. The most likely ca use would be direct central nervous system involvement of the lymphoma. Drugs, such as the medicati ons in CHOP or Zosyn, seem less likely. He has no significant electrolyte abnormalities. He has mi ld hyponatremia, but this has actually been improving. His calcium is normal when corrected for the low albumin. 2. Acute respiratory failure. This is due to inability to protect his airway from the seizures. H e is currently intubated, and his blood gas actually shows that he is being overventilated. 3. Hyponatremia. This is mild. 4. Anemia. The patient's hemoglobin is 9.4, which is the highest it has been in the last several d ays. RECOMMENDATIONS: 1. An urgent neurology consultation has been obtained, and the patient has been given an additional dose of Keppra. He is currently on propofol, and Ativan will be given if he has more seizures. Th e patient's 2 prolonged seizures warrant transfer to a facility with the ability to do EEG monitorin [place]. 2. I have reduced the patient's ventilator rate and tidal volume. Repeat arterial blood gas will b e performed. 3. Check ionized calcium. /[id number]/MODL
[2017-01-31 12:48] VITALS: TEMP 98.2
--- NOTE | 2017-01-31 12:55 | GDS ---
[f rep st] TRANSFER SUMMARY TRANSFER DIAGNOSES: 1. Status epilepticus. 2. Stage IVB diffuse large cell B-cell lymphoma with extensive bony involvement , non-GCB, MYC and BCL-2 pending, status post treatment with R-CHOP on 2016. 3. 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 4. Malnutrition and failure to thrive. 5. Resolved ileus. 6. Thrombocytopenia. 7. Peripheral neuropathy. 8. Anemia. 9. Fever, currently resolved since starting Zosyn 3 days ago. CONSULTANTS: 1. Dr. Freddie Riddle, [facility]. 2. Dr. Klaus Nixon, neurology. HOSPITAL COURSE AND STAY BY PROBLEM: 1. DLBCL stage IVB with extensive bony involvement: The patient has been followed by Oncology and has completed a cycle of R-CHOP. The patient has been slow to recover from chemotherapy which was complicated by neutropenia and anemia as well as anorexia. The patient has been very weak and confused. Over the past few days, his appetite has been improving. He did develop fever on . Blood cultures done on 01/27 were drawn that have yet to grow any organisms. He was empirically treated with Zosyn which was started on 2016. Since starting Zosyn, his fevers have resolved. 2. Status epilepticus: On the morning of 01/31/2017, the patient had new- onset seizure. A CT of the head was done that is negative for hemorrhage or mass lesion. There is no seizure focus identified. He was transferred to the intensive care unit where his O2 saturations dropped to the high 60s and was subsequently intubated for airway protection and hypoxemia. Prior to intubation , he was treated with etomidate, succinylcholine, and Ativan. On day of transfer, I discussed the case with Dr. Nixon who is recommending transfer to [facility] for continuous EEG monitoring in the setting of his status epilepticus. PROCEDURES DONE THIS HOSPITAL STAY: Lung biopsy done 01/12/2017, refer to report. Pathology was consistent with diffuse large B-cell lymphoma, non germinal center phenotype. Bone marrow biopsy done 01/13/2017. TRANSFER MEDICATIONS: Ref[facility] and on the transfer summary. DISCHARGE INSTRUCTIONS AND FOLLOWUP: At this point, the patient will need further treatment for his diffuse large cell B-cell lymphoma. He should have further workup for BUSINESS ANALYTICS ANALYST lymphoma as a cause for his seizures including MRI of the brain and lumbar puncture. He will need close followup and treatment with the oncology team at [facility]. Once again, he has been on empiric Zosyn for the past few days due to a fever that he had last on 01/29/2017. At this time, will plan on continuing Zosyn which can likely be stopped soon. Greater than 30 minutes where spent on the discharge of this patient /[id number]/MODL MTDD
[2017-01-31 13:44] VITALS: PULSE 100
[2017-01-31] MEDS ORDERED: levETIRAcetam 500 MG in NS 100 ML IV SCH (20:00)
[2017-01-31] MEDS ORDERED: CHLORHEXIDINE GLUCONATE 15 ML UDL PO SCH (20:00)
--- NOTE | 2017-02-03 11:24 | PQFORM ---
PHYSICIAN QUERY FORM Needs Your Response This query form is being sent to you to assure this patient record is coded properly. Please respond to the question below: FREELANCE DISPLAYER QUESTION: Dear Dr. Bazan, Patient presented to the Emergency department with weakness and confusion. Hospitalist progress notes dated 01/10-01/29 state patient had the diagnosis of "Acute encephalopathy." Hospitalist progress notes dated 01/20 that the "Acute encephalopathy seems related to depression." Hospitalist progress notes dated -01/29 states "mental status c/w delirium in setting of prolonged hospitalization." Discharge summary states patient "has been very weak and confused." After study, should the diagnosis of "Acute Encephalopathy" be included in the Discharge summary? Yes __x____ No Other more appropriate diagnosis Unable to determine Thank you [facility] [phone] INSTRUCTIONS FOR RESPONSE: Answer question by clicking on the "Edit Document" button. Move cursor to area below the stars. When complete, hit "Save." Click on the "Sign" button, then click "Sign" again. Type in your PIN and hit "Enter." MTDD
--- NOTE | 2017-02-03 11:33 | PQFORM ---
PHYSICIAN QUERY FORM Needs Your Response This query form is being sent to you to assure this patient record is coded properly. Please respond to the question below: TRANSONIC ENGINEER QUESTION: Dear Dr. Bazan, It is documented in the Hospitalist progress notes dated 01/20-01/27 that this patient had the diagnosis of "Left lower lobe pneumonia." SOAP notes dated documented the patient had "cough with fever." On 01/21 patient was on day 3 of Levaquin. Chest X-Ray dated 01/19 shows left lower lobe pneumonia. CT of abdomen and pelvis dated 01/19 shows left lower lobe consolidation suggesting pneumonia. After study, should the diagnosis of "Left lower lobe pneumonia" be included in the Discharge summary? Yes ____x__ No Other more appropriate diagnosis Unable to determine Thank you GAVIN [facility]oding [facility] [phone] INSTRUCTIONS FOR RESPONSE: Answer question by clicking on the "Edit Document" button. Move cursor to area below the stars. When complete, hit "Save." Click on the "Sign" button, then click "Sign" again. Type in your PIN and hit "Enter." MTDD
--- NOTE | 2017-02-03 16:52 | CPEKG ---
Heart Rate: 129 RR Interval: 465 P-R Interval: 136 QRSD Interval: 82 QT Interval: 272 QTC Interval: 399 P [place]: 84 QRS [place]: -5 T Wave [place]: 95 EKG Severity - ABNORMAL ECG - EKG Impression: SINUS TACHYCARDIA EKG Impression: PROBABLE LEFT ATRIAL ABNORMALITY EKG Impression: NONSPECIFIC T ABNORMALITIES, LATERAL LEADS Electronically Signed By: Bal Espinoza 04-Feb-2017 08:02:00
== END 2017-01-31 13:49 | disposition short-term general hospital (02) | DRG 840 ==
LOC: F1N 12:35 → F2N 01-31 08:02
PROVIDERS: ADMIT Internal Medicine; ATTEND Internal Medicine
PROC: 0WBC3ZX Excision of Mediastinum, Percutaneous Approach, Diagnostic (ICD-10-PCS; 2017-01-12)
PROC: 07DR3ZX Extraction of Iliac Bone Marrow, Percutaneous Approach, Diagnostic (ICD-10-PCS; 2017-01-13)
PROC: 3E0330M Introduction of Antineoplastic, Monoclonal Antibody, into Peripheral Vein, Percutaneous Approach (ICD-10-PCS; 2017-01-15)
PROC: 02HV33Z Insertion of Infusion Device into Superior Vena Cava, Percutaneous Approach (ICD-10-PCS; 2017-01-19)
PROC: 0BH17EZ Insertion of Endotracheal Airway into Trachea, Via Natural or Artificial Opening (ICD-10-PCS; principal; 2017-01-31)
DX: C85.10 Unspecified B-cell lymphoma, unspecified site (principal); E43 Unspecified severe protein-calorie malnutrition; G93.49 Other encephalopathy; J18.1 Lobar pneumonia, unspecified organism; E22.2 Syndrome of inappropriate secretion of antidiuretic hormone; K56.7 Ileus, unspecified; J95.811 Postprocedural pneumothorax; G40.401 Other generalized epilepsy and epileptic syndromes, not intractable, with status epilepticus; L89.152 Pressure ulcer of sacral region, stage 2; R09.02 Hypoxemia; G62.9 Polyneuropathy, unspecified; D63.1 Anemia in chronic kidney disease; R33.9 Retention of urine, unspecified; Z87.891 Personal history of nicotine dependence; Z80.9 Family history of malignant neoplasm, unspecified
CPT/HCPCS: 82607-90; 82784-90; 84154-90; 85060-90; 86334-90; 86705-90; 88184-90; 88185-91; 92507-GN; 92523-GN; 92610-GN; 97110-GP; 97112-GP; 97116-GP; 97161-GP; 97165-GO; 97530-GO; 97530-GP; 97535-GO; A9585; C1751; G0472; G8978-GP-CI; G8978-GP-CL; G8979-GP-CI; G8987-GO-CK; G8987-GO-CL; G8988-GO-CI; G8988-GO-CJ; G8996-GN-CH; G8997-GN-CH; G8998-GN-CH; G9168-GN-CL; G9169-GN-CJ; J0330; J1200; J1650; J1815; J1953; J1956; J2060; J2250; J2405; J2469; J2543; J2704; J3010; J3475; J9000; J9070; J9310; J9370; Q5101-ZA; Q9967